=== PATIENT | female | born 1930 | race Caucasian/White ===

== ENCOUNTER 2018-08-26 05:22 | Inpatient (IN) | payer MEDICARE, OTHER ==
[2018-08-26 05:54] LABS: ADD MAN DIFF? NO
[2018-08-26 05:58] LABS: BASOPHILS % 0.4 % (0.0-2.0); EOSINOPHILS # 0.3 10^3/ul (0.0-0.5); EOSINOPHILS % 2.4 % (0.0-7.0); HEMATOCRIT 30.7 % (37.0-47.0); HEMOGLOBIN 9.9 g/dl (12.0-16.0); LYMPHOCYTES # 2.6 10^3/ul (0.8-2.9); LYMPHOCYTES % 23.6 % (15.0-51.0); MEAN CORPUSCULAR HEMOGLOBIN 28.9 pg (29.0-33.0); MEAN CORPUSCULAR HGB CONC 32.2 g/dl (32.0-37.0); MEAN CORPUSCULAR VOLUME 89.5 fl (82.0-101.0); MEAN PLATELET VOLUME 12.1 fl (7.4-10.4); MONOCYTE # 0.6 10^3/ul (0.3-0.9); MONOCYTES % 5.7 % (0.0-11.0); NEUTROPHIL # 7.4 10^3/ul (1.6-7.5); NEUTROPHILS % 67.4 % (39.0-77.0); PLATELET COUNT 267 10^3/UL (140-415); RED BLOOD COUNT 3.43 10^6/ul (4.20-5.40); RED CELL DISTRIBUTION WIDTH 13.2 % (11.5-14.5)
[2018-08-26 06:16] LABS: ALANINE AMINOTRANSFERASE 135 IU/L (13-69); ALBUMIN/GLOBULIN RATIO 1.42; ALKALINE PHOSPHATASE 134 IU/L (42-121); ANION GAP 16 (5-13); ASPARTATE AMINO TRANSFERASE 131 IU/L (15-46); BILIRUBIN,INDIRECT 0.6 mg/dl (0-1.1); BILIRUBIN,TOTAL 0.6 mg/dl (0.2-1.3); BLOOD UREA NITROGEN 54 mg/dl (7-20); CALCIUM 9.1 mg/dl (8.4-10.2); CARBON DIOXIDE 16 mmol/L (21-31); CHLORIDE 103 mmol/L (97-110); CREATININE 1.69 mg/dl (0.44-1.00); LIPASE 99 U/L (23-300); POTASSIUM 4.8 mmol/L (3.5-5.1); SODIUM 135 mmol/L (135-144); TOTAL PROTEIN 6.8 g/dl (6.1-8.1)
[2018-08-26 06:25] LABS: GLUCOSE 483 mg/dl (70-220)
[2018-08-26 06:27] LABS: B-TYPE NATRIURETIC PEPTIDE 1450 PG/ML (0-450); TROPONIN-I 0.058 ng/ml (0.000-0.120)
[2018-08-26] MEDS ORDERED: NS + KCL 40 MEQ 1,000 ML IV (06:36)
[2018-08-26] MEDS ORDERED: DEXTROSE 10%/0.45% NACL 1,000 ML IV (06:36)
[2018-08-26] MEDS ORDERED: SOD CHLORIDE 0.9% 1,000 ML IV (06:36)
[2018-08-26] MEDS ORDERED: D10/0.45% NACL + KCL 40 MEQ 1,000 ML IV (06:36)
[2018-08-26] MEDS ORDERED: D10/0.45% NACL + KCL 30 MEQ 1,000 ML IV (06:36)
[2018-08-26] MEDS: FUROSEMIDE 40 MG INJ IV (06:47)
[2018-08-26] MEDS: NITROGLYCERIN 2% 1 GM OINT PKT TD ×3 (06:47→22:23)
[2018-08-26] MEDS ORDERED: DEXTROSE 50% 50 ML SYRINGE IV ×4 (07:00→13:30)
[2018-08-26] MEDS ORDERED: NITROGLYCERIN (SL) 0.4 MG TAB SL (07:00)
[2018-08-26 07:11] LABS: INR 1.03; PROTIME 13.6 Sec (11.9-14.9); PT RATIO 1.1
[2018-08-26] MEDS: LACTATED RINGER'S 750 ML IV (07:13)
[2018-08-26 08:18] LABS: HEMOGLOBIN A1C 7.8 % (0-5.9)
[2018-08-26] MEDS: NS + KCL 30 MEQ 1,000 ML IV (08:40)
[2018-08-26] MEDS: INSULIN REGULAR, HUMAN 100 UNIT in SOD CHLORIDE 0.9% 100 ML IV (08:42)
[2018-08-26 08:57] LABS: MODE HFNC; MetHgb Venous 0.1 %; Sample Type Blood venous; Site VENOUS LINE; Venous COHb 0 %; Venous Fraction OxyHgb 74.9 %; Venous Total Hemglobin 11.4 g/dl
[2018-08-26 09:02] LABS: ANION GAP 11 (5-13); BLOOD UREA NITROGEN 55 mg/dl (7-20); CALCIUM 9.2 mg/dl (8.4-10.2); CARBON DIOXIDE 23 mmol/L (21-31); CHLORIDE 101 mmol/L (97-110); CREATININE 1.64 mg/dl (0.44-1.00); PHOSPHORUS 4.5 mg/dl (2.5-4.9); SODIUM 135 mmol/L (135-144)
[2018-08-26 09:15] LABS: GLUCOSE 436 mg/dl (70-220)
[2018-08-26 09:59] LABS: ADD UMIC YES; UR ASCORBIC ACID 40 mg/dL (NEGATIVE); UR BILIRUBIN (Dip) NEGATIVE (NEGATIVE); UR BLOOD (Dip) NEGATIVE (NEGATIVE); UR CLARITY CLEAR (CLEAR); UR COLOR YELLOW (YELLOW); UR GLUCOSE (Dip) 1+ mg/dL (NEGATIVE); UR KETONES (Dip) NEGATIVE (NEGATIVE); UR LEUKOCYTE ESTERASE (Dip) 2+ Leu/ul (NEGATIVE); UR NITRITE (Dip) NEGATIVE (NEGATIVE); UR RBC 0 /HPF (0-5); UR SPECIFIC GRAVITY (Dip) 1.011 (1.003-1.030); UR TOTAL PROTEIN (Dip) NEGATIVE (NEGATIVE); UR UROBILINOGEN (Dip) NEGATIVE (NEGATIVE); UR WBC 9 /HPF (0-5)
[2018-08-26] MEDS: INSULIN LISPRO 100 UNIT/ML VIAL SC (10:19)
[2018-08-26] MEDS: ACCU-CHEK XX (10:36)
[2018-08-26 10:56] LABS: MODE HFNC; MetHgb Venous 0.3 %; Sample Type Blood venous; Site VENOUS LINE; Venous COHb 0.3 %; Venous Fraction OxyHgb 59.3 %; Venous Oxygen Sat 59.7 mmHG (55.0-75.0); Venous Total Hemglobin 11.5 g/dl
[2018-08-26 11:13] LABS: CREATINE KINASE 66 IU/L (23-200)
[2018-08-26 11:15] LABS: ANION GAP 12 (5-13); BLOOD UREA NITROGEN 51 mg/dl (7-20); CALCIUM 9.3 mg/dl (8.4-10.2); CARBON DIOXIDE 21 mmol/L (21-31); CHLORIDE 103 mmol/L (97-110); CREATININE 1.62 mg/dl (0.44-1.00); GLUCOSE 360 mg/dl (70-220); PHOSPHORUS 3.8 mg/dl (2.5-4.9); POTASSIUM 4.5 mmol/L (3.5-5.1); SODIUM 136 mmol/L (135-144)
[2018-08-26 11:31] LABS: CK INDEX 3.4; CK-MB 2.23 ng/ml (0.0-2.4)
[2018-08-26 11:33] LABS: TROPONIN-I 0.631 ng/ml (0.000-0.120)
[2018-08-26 12:59] LABS: IRON 30 ug/dl (35-150)
[2018-08-26] MEDS ORDERED: NON-FORMULARY/PATIENT OWN MED (Omeprazole* 40 MG) PO (13:00)
[2018-08-26] MEDS ORDERED: ZOLPIDEM 5 MG TAB PO (13:00)
[2018-08-26] MEDS ORDERED: DOCUSATE SODIUM 100 MG CAP PO ×2 (13:00)
[2018-08-26] MEDS ORDERED: NACL 0.9% 3 ML SYG IV ×2 (13:00)
[2018-08-26] MEDS ORDERED: ONDANSETRON 4 MG INJ IV ×2 (13:00)
[2018-08-26] MEDS ORDERED: MAGNESIUM HYDROXIDE 30ML CUP PO (13:00)
[2018-08-26] MEDS ORDERED: ACETAMINOPHEN 325 MG TAB PO (13:00)
[2018-08-26 13:08] LABS: % IRON SATURATION 10 % SAT (22-52); TOTAL IRON BINDING CAPACITY 304 ug/dl (241-421)
[2018-08-26] MEDS ORDERED: GLUCOSE GEL 15 GRAM TUBE BUCCAL (13:30)
[2018-08-26] MEDS ORDERED: GLUCOSE GEL 15 GRAM TUBE PO ×2 (13:30)
[2018-08-26] MEDS ORDERED: GLUCAGON 1 MG INJ IM (13:30)
[2018-08-26] MEDS: METOPROLOL 25 MG TAB PO ×2 (13:30→23:00)
[2018-08-26 13:39] LABS: ALANINE AMINOTRANSFERASE 177 IU/L (13-69); ALBUMIN 3.6 g/dl (3.3-4.9); ALKALINE PHOSPHATASE 140 IU/L (42-121); ASPARTATE AMINO TRANSFERASE 153 IU/L (15-46); BILIRUBIN,INDIRECT 0.5 mg/dl (0-1.1); BILIRUBIN,TOTAL 0.5 mg/dl (0.2-1.3)
[2018-08-26 14:05] LABS: AADO2 Arterial 628.2 mmHg (7.0-24.0); Allen Test ACCEPTAB; Arterial Base Excess -1.4 mmol/L (-3.0-3); Arterial COHb 0.3 % (0.0-3.0); Arterial Fraction of Oxyhgb 84.6 % (93.0-99.0); Arterial HCO3 22.6 mmol/L (22.0-26.0); Arterial MetHb 0.2 % (0.0-1.5); Arterial pCO2 35.5 mmhg (35-45); MODE HFNC; Site Right Radial
[2018-08-26] MEDS: ENOXAPARIN 100 MG/ML SYG SC (16:03)
[2018-08-26] MEDS: BUMETANIDE 25 MG in DEXTROSE 5% 150 ML IV (16:17)
[2018-08-26] MEDS: INSULIN GLARGINE [LANTus] (100 UNITS/ML) SYG SC (17:25)
[2018-08-26] MEDS: INSULIN ASPART [NOVOLOG] 3 ML PEN SC ×2 (17:31→20:58)
[2018-08-26] MEDS ORDERED: INSULIN ASPART [NOVOLOG] 3 ML PEN SC (17:35)
[2018-08-26] MEDS ORDERED: FUROSEMIDE 40 MG INJ IV (18:00)
[2018-08-26 18:36] LABS: AADO2 Arterial 603.6 mmHg (7.0-24.0); Allen Test ACCEPTAB; Arterial Base Excess -0.6 mmol/L (-3.0-3); Arterial Blood Gas Oxygen Sat 94.7 mmHG (95.0-100.0); Arterial COHb 0 % (0.0-3.0); Arterial Fraction of Oxyhgb 94.3 % (93.0-99.0); Arterial HCO3 23.2 mmol/L (22.0-26.0); Arterial MetHb 0.4 % (0.0-1.5); Arterial pCO2 35.8 mmhg (35-45); Blood Gas IEPAP 15/5; Blood Gas PS 10; MODE MASK - BIPAP; Site Right Radial
[2018-08-26 18:51] LABS: POTASSIUM 4.3 mmol/L (3.5-5.1)
[2018-08-26] MEDS: FELODIPINE (ER) 5 MG TAB PO (21:00)
[2018-08-26] MEDS: FAMOTIDINE 20 MG TAB PO (21:00)
[2018-08-26] MEDS: ATORVASTATIN 80 MG TAB PO (21:00)
[2018-08-26] MEDS ORDERED: FAMOTIDINE 20 MG TAB PO (21:00)
[2018-08-27] MEDS: INSULIN ASPART [NOVOLOG] 3 ML PEN SC ×6 (01:00→21:16)
[2018-08-27] MEDS ORDERED: ACCU-CHEK XX (02:00)
[2018-08-27 05:30] LABS: ADD MAN DIFF? NO
[2018-08-27 05:34] LABS: WHITE BLOOD COUNT 7.1 10^3/ul (4.8-10.8)
[2018-08-27 05:34] LABS: BASOPHILS % 0.3 % (0.0-2.0); HEMATOCRIT 31.5 % (37.0-47.0); HEMOGLOBIN 10.2 g/dl (12.0-16.0); LYMPHOCYTES # 0.8 10^3/ul (0.8-2.9); LYMPHOCYTES % 11.8 % (15.0-51.0); MEAN CORPUSCULAR HEMOGLOBIN 27.9 pg (29.0-33.0); MEAN CORPUSCULAR HGB CONC 32.4 g/dl (32.0-37.0); MEAN CORPUSCULAR VOLUME 86.1 fl (82.0-101.0); MEAN PLATELET VOLUME 11.6 fl (7.4-10.4); MONOCYTE # 0.5 10^3/ul (0.3-0.9); MONOCYTES % 6.6 % (0.0-11.0); NEUTROPHIL # 5.7 10^3/ul (1.6-7.5); NEUTROPHILS % 80.9 % (39.0-77.0); PLATELET COUNT 243 10^3/UL (140-415); RED BLOOD COUNT 3.66 10^6/ul (4.20-5.40); RED CELL DISTRIBUTION WIDTH 13.4 % (11.5-14.5)
[2018-08-27] MEDS: PANTOPRAZOLE (EC) 40 MG TAB PO (05:47)
[2018-08-27] MEDS: NITROGLYCERIN 2% 1 GM OINT PKT TD ×3 (05:48→22:39)
[2018-08-27 06:28] LABS: ANION GAP 12 (5-13); BLOOD UREA NITROGEN 43 mg/dl (7-20); CALCIUM 9.3 mg/dl (8.4-10.2); CARBON DIOXIDE 29 mmol/L (21-31); CHLORIDE 103 mmol/L (97-110); CREATININE 1.36 mg/dl (0.44-1.00); GLUCOSE 167 mg/dl (70-220); MAGNESIUM 1.8 mg/dl (1.7-2.5); PHOSPHORUS 4.1 mg/dl (2.5-4.9); POTASSIUM 3.9 mmol/L (3.5-5.1); SODIUM 144 mmol/L (135-144)
[2018-08-27] MEDS: FELODIPINE (ER) 5 MG TAB PO ×2 (08:46→21:02)
[2018-08-27] MEDS: MAGNESIUM SULFATE 2 GM/50 ML 50 ML IVPB (08:46)
[2018-08-27] MEDS: ASPIRIN (EC) 81 MG TAB PO (08:46)
[2018-08-27] MEDS: LEVOFLOXACIN 500MG/D5W (PMX) 100 ML IVPB (09:44)
[2018-08-27] MEDS: METOPROLOL 5 MG INJ IV ×2 (11:42→17:17)
[2018-08-27] MEDS: ENOXAPARIN 100 MG/ML SYG SC (13:31)
[2018-08-27] MEDS: ATORVASTATIN 80 MG TAB PO (21:02)
[2018-08-27] MEDS: AZTREONAM 2 GM in SOD CHLORIDE 0.9% 100 ML IVPB (21:03)
[2018-08-27 22:13] LABS: POTASSIUM 3.2 mmol/L (3.5-5.1)
[2018-08-27] MEDS: POTASSIUM CHLORIDE 100 ML IVPB (22:53)
[2018-08-28] MEDS: METOPROLOL 5 MG INJ IV ×3 (00:19→12:00)
[2018-08-28] MEDS: POTASSIUM CHLORIDE 100 ML IVPB (01:09)
[2018-08-28] MEDS: INSULIN ASPART [NOVOLOG] 3 ML PEN SC ×6 (01:09→20:22)
[2018-08-28 05:17] LABS: ADD MAN DIFF? NO
[2018-08-28 05:23] LABS: WHITE BLOOD COUNT 6.2 10^3/ul (4.8-10.8)
[2018-08-28 05:23] LABS: BASOPHILS % 0.3 % (0.0-2.0); HEMATOCRIT 29.2 % (37.0-47.0); HEMOGLOBIN 9.3 g/dl (12.0-16.0); LYMPHOCYTES % 15.9 % (15.0-51.0); MEAN CORPUSCULAR HEMOGLOBIN 28.4 pg (29.0-33.0); MEAN CORPUSCULAR HGB CONC 31.8 g/dl (32.0-37.0); MEAN PLATELET VOLUME 11.9 fl (7.4-10.4); MONOCYTE # 0.6 10^3/ul (0.3-0.9); MONOCYTES % 9.4 % (0.0-11.0); NEUTROPHIL # 4.6 10^3/ul (1.6-7.5); NEUTROPHILS % 74.1 % (39.0-77.0); PLATELET COUNT 215 10^3/UL (140-415); RED BLOOD COUNT 3.28 10^6/ul (4.20-5.40); RED CELL DISTRIBUTION WIDTH 13.5 % (11.5-14.5)
[2018-08-28 05:38] LABS: ALANINE AMINOTRANSFERASE 70 IU/L (13-69); ALBUMIN 3.6 g/dl (3.3-4.9); ALBUMIN/GLOBULIN RATIO 1.28; ALKALINE PHOSPHATASE 90 IU/L (42-121); ANION GAP 9 (5-13); ASPARTATE AMINO TRANSFERASE 28 IU/L (15-46); BILIRUBIN,INDIRECT 0.7 mg/dl (0-1.1); BILIRUBIN,TOTAL 0.7 mg/dl (0.2-1.3); BLOOD UREA NITROGEN 52 mg/dl (7-20); CALCIUM 9.2 mg/dl (8.4-10.2); CARBON DIOXIDE 28 mmol/L (21-31); CHLORIDE 103 mmol/L (97-110); GLUCOSE 155 mg/dl (70-220); MAGNESIUM 2.3 mg/dl (1.7-2.5); PHOSPHORUS 3.9 mg/dl (2.5-4.9); POTASSIUM 3.7 mmol/L (3.5-5.1); SODIUM 140 mmol/L (135-144); TOTAL PROTEIN 6.4 g/dl (6.1-8.1)
[2018-08-28] MEDS: NITROGLYCERIN 2% 1 GM OINT PKT TD (05:59)
[2018-08-28] MEDS: FELODIPINE (ER) 5 MG TAB PO ×2 (08:20→20:20)
[2018-08-28] MEDS: FAMOTIDINE 20 MG INJ IV (08:20)
[2018-08-28] MEDS: ASPIRIN (EC) 81 MG TAB PO (08:20)
[2018-08-28] MEDS: AZTREONAM 2 GM in SOD CHLORIDE 0.9% 100 ML IVPB ×2 (08:49→20:19)
[2018-08-28 09:40] LABS: PROCALCITONIN 0.75 ng/mL (0.00-0.10)
[2018-08-28] MEDS: ENOXAPARIN 100 MG/ML SYG SC (12:24)
[2018-08-28] MEDS: SOD FERRIC GLUC COMPLX 125 MG in SOD CHLORIDE 0.9% 100 ML IVPB (12:32)
[2018-08-28] MEDS: ACETAMINOPHEN 325 MG TAB PO ×2 (12:33→20:20)
[2018-08-28] MEDS: FUROSEMIDE 40 MG INJ IV (13:12)
[2018-08-28] MEDS: METOPROLOL 25 MG TAB PO ×2 (14:00→20:20)
[2018-08-28] MEDS: ATORVASTATIN 80 MG TAB PO (20:21)
[2018-08-29] MEDS: INSULIN ASPART [NOVOLOG] 3 ML PEN SC ×6 (00:40→20:15)
[2018-08-29 05:04] LABS: ADD MAN DIFF? NO
[2018-08-29 05:09] LABS: BASOPHILS % 0.6 % (0.0-2.0); EOSINOPHILS % 0.4 % (0.0-7.0); HEMATOCRIT 28.6 % (37.0-47.0); HEMOGLOBIN 9.1 g/dl (12.0-16.0); LYMPHOCYTES # 1.2 10^3/ul (0.8-2.9); LYMPHOCYTES % 17.6 % (15.0-51.0); MEAN CORPUSCULAR HEMOGLOBIN 28.2 pg (29.0-33.0); MEAN CORPUSCULAR HGB CONC 31.8 g/dl (32.0-37.0); MEAN CORPUSCULAR VOLUME 88.5 fl (82.0-101.0); MEAN PLATELET VOLUME 11.4 fl (7.4-10.4); MONOCYTE # 0.5 10^3/ul (0.3-0.9); MONOCYTES % 6.9 % (0.0-11.0); NEUTROPHIL # 5.2 10^3/ul (1.6-7.5); NEUTROPHILS % 74.2 % (39.0-77.0); PLATELET COUNT 248 10^3/UL (140-415); RED BLOOD COUNT 3.23 10^6/ul (4.20-5.40); RED CELL DISTRIBUTION WIDTH 13.3 % (11.5-14.5)
[2018-08-29 05:33] LABS: PHOSPHORUS 4.7 mg/dl (2.5-4.9)
[2018-08-29 05:33] LABS: ANION GAP 11 (5-13); BLOOD UREA NITROGEN 62 mg/dl (7-20); CALCIUM 9.5 mg/dl (8.4-10.2); CARBON DIOXIDE 27 mmol/L (21-31); CHLORIDE 104 mmol/L (97-110); CREATININE 1.41 mg/dl (0.44-1.00); GLUCOSE 128 mg/dl (70-220); MAGNESIUM 2.5 mg/dl (1.7-2.5); POTASSIUM 3.5 mmol/L (3.5-5.1); SODIUM 142 mmol/L (135-144)
[2018-08-29 07:27] LABS: PROCALCITONIN 0.54 ng/mL (0.00-0.10)
[2018-08-29 08:15] LABS: AADO2 Arterial 596.6 mmHg (7.0-24.0); Arterial Base Excess 2.1 mmol/L (-3.0-3); Arterial Blood Gas Oxygen Sat 95.4 mmHG (95.0-100.0); Arterial COHb 0.1 % (0.0-3.0); Arterial Fraction of Oxyhgb 95.3 % (93.0-99.0); Arterial HCO3 25.8 mmol/L (22.0-26.0); Arterial MetHb 0 % (0.0-1.5); Arterial pCO2 36.7 mmhg (35-45); Blood Gas IEPAP 15/5; MODE MASK - BIPAP; Site Right Brachial
[2018-08-29] MEDS: AZTREONAM 2 GM in SOD CHLORIDE 0.9% 100 ML IVPB ×2 (08:39→20:11)
[2018-08-29] MEDS: LEVOFLOXACIN 500MG/D5W (PMX) 100 ML IVPB (08:40)
[2018-08-29] MEDS: FELODIPINE (ER) 5 MG TAB PO ×2 (08:40→19:53)
[2018-08-29] MEDS: FAMOTIDINE 20 MG INJ IV (08:40)
[2018-08-29] MEDS: METOPROLOL 25 MG TAB PO ×2 (08:40→19:53)
[2018-08-29] MEDS: ASPIRIN (EC) 81 MG TAB PO (08:40)
[2018-08-29] MEDS: FUROSEMIDE 40 MG INJ IV (08:42)
[2018-08-29] MEDS: POTASSIUM CHLORIDE (SR) 10 MEQ TAB PO (08:42)
[2018-08-29] MEDS ORDERED: VANCOMYCIN IV PER PHARMACY XX (09:30)
[2018-08-29] MEDS: VANCOMYCIN HCL 1.5 GM in SOD CHLORIDE 0.9% 250 ML IVPB (13:11)
[2018-08-29] MEDS: ENOXAPARIN 80 MG/0.8 ML SYG SC (13:14)
[2018-08-29] MEDS: SOD FERRIC GLUC COMPLX 125 MG in SOD CHLORIDE 0.9% 100 ML IVPB (13:16)
[2018-08-29] MEDS: LIDOCAINE 5% PATCH TD (13:16)
[2018-08-29] MEDS: LORAZEPAM 0.5 MG TAB PO (13:26)
[2018-08-29] MEDS: ATORVASTATIN 80 MG TAB PO (19:53)
[2018-08-29 19:54] LABS: ANION GAP 13 (5-13); BLOOD UREA NITROGEN 65 mg/dl (7-20); CALCIUM 8.9 mg/dl (8.4-10.2); CARBON DIOXIDE 24 mmol/L (21-31); CHLORIDE 105 mmol/L (97-110); CREATININE 1.27 mg/dl (0.44-1.00); GLUCOSE 180 mg/dl (70-220); POTASSIUM 3.8 mmol/L (3.5-5.1); SODIUM 142 mmol/L (135-144)
[2018-08-29] MEDS: LORAZEPAM 2 MG INJ IV (19:54)
[2018-08-30] MEDS: INSULIN ASPART [NOVOLOG] 3 ML PEN SC ×6 (00:05→20:36)
[2018-08-30 05:01] LABS: ADD MAN DIFF? NO
[2018-08-30 05:11] LABS: BASOPHILS % 0.3 % (0.0-2.0); HEMATOCRIT 28.4 % (37.0-47.0); LYMPHOCYTES # 0.7 10^3/ul (0.8-2.9); LYMPHOCYTES % 10.6 % (15.0-51.0); MEAN CORPUSCULAR HEMOGLOBIN 27.6 pg (29.0-33.0); MEAN CORPUSCULAR HGB CONC 31.7 g/dl (32.0-37.0); MEAN CORPUSCULAR VOLUME 87.1 fl (82.0-101.0); MEAN PLATELET VOLUME 11.5 fl (7.4-10.4); MONOCYTE # 0.5 10^3/ul (0.3-0.9); MONOCYTES % 7.6 % (0.0-11.0); NEUTROPHIL # 5.5 10^3/ul (1.6-7.5); NEUTROPHILS % 81.2 % (39.0-77.0); PLATELET COUNT 267 10^3/UL (140-415); RED BLOOD COUNT 3.26 10^6/ul (4.20-5.40); RED CELL DISTRIBUTION WIDTH 13.2 % (11.5-14.5)
[2018-08-30 05:11] LABS: WHITE BLOOD COUNT 6.8 10^3/ul (4.8-10.8)
[2018-08-30 05:31] LABS: ANION GAP 9 (5-13); BLOOD UREA NITROGEN 67 mg/dl (7-20); CALCIUM 9.3 mg/dl (8.4-10.2); CARBON DIOXIDE 27 mmol/L (21-31); CHLORIDE 107 mmol/L (97-110); GLUCOSE 181 mg/dl (70-220); POTASSIUM 3.8 mmol/L (3.5-5.1); SODIUM 143 mmol/L (135-144)
[2018-08-30 05:33] LABS: MAGNESIUM 2.5 mg/dl (1.7-2.5)
[2018-08-30 05:33] LABS: PHOSPHORUS 3.7 mg/dl (2.5-4.9)
[2018-08-30 05:38] LABS: B-TYPE NATRIURETIC PEPTIDE 3820 PG/ML (0-450)
[2018-08-30] MEDS: ACETAMINOPHEN 325 MG TAB PO (06:44)
[2018-08-30] MEDS: FAMOTIDINE 20 MG INJ IV (08:42)
[2018-08-30] MEDS: ASPIRIN (EC) 81 MG TAB PO (08:42)
[2018-08-30] MEDS: METOPROLOL 25 MG TAB PO (08:43)
[2018-08-30] MEDS: FELODIPINE (ER) 5 MG TAB PO (08:43)
[2018-08-30] MEDS: AZTREONAM 2 GM in SOD CHLORIDE 0.9% 100 ML IVPB ×2 (08:43→20:33)
[2018-08-30] MEDS: LIDOCAINE 5% PATCH TD (08:44)
[2018-08-30] MEDS: VANCOMYCIN 750 MG (PMX) 250 ML IVPB (11:32)
[2018-08-30] MEDS: SOD FERRIC GLUC COMPLX 125 MG in SOD CHLORIDE 0.9% 100 ML IVPB (12:41)
[2018-08-30] MEDS: ENOXAPARIN 80 MG/0.8 ML SYG SC (12:45)
[2018-08-30] MEDS: POTASSIUM CHLORIDE (SR) 20 MEQ TAB PO (12:52)
[2018-08-30] MEDS: FUROSEMIDE 40 MG INJ IV (12:53)
[2018-08-30] MEDS: LORAZEPAM 2 MG INJ IV ×2 (13:40→21:33)
[2018-08-30] MEDS: ATORVASTATIN 80 MG TAB PO (20:30)
[2018-08-30] MEDS: METOPROLOL 50 MG TAB PO (20:32)
[2018-08-31] MEDS: LORAZEPAM 2 MG INJ IV (02:27)
[2018-08-31] MEDS: INSULIN ASPART [NOVOLOG] 3 ML PEN SC ×6 (02:59→20:47)
[2018-08-31 05:13] LABS: ADD MAN DIFF? NO
[2018-08-31 05:22] LABS: BASOPHILS % 0.3 % (0.0-2.0); EOSINOPHILS % 0.6 % (0.0-7.0); HEMATOCRIT 28.6 % (37.0-47.0); HEMOGLOBIN 9.1 g/dl (12.0-16.0); LYMPHOCYTES # 0.9 10^3/ul (0.8-2.9); LYMPHOCYTES % 13.8 % (15.0-51.0); MEAN CORPUSCULAR HEMOGLOBIN 27.8 pg (29.0-33.0); MEAN CORPUSCULAR HGB CONC 31.8 g/dl (32.0-37.0); MEAN CORPUSCULAR VOLUME 87.5 fl (82.0-101.0); MEAN PLATELET VOLUME 11.2 fl (7.4-10.4); MONOCYTE # 0.4 10^3/ul (0.3-0.9); MONOCYTES % 5.5 % (0.0-11.0); NEUTROPHIL # 5.2 10^3/ul (1.6-7.5); NEUTROPHILS % 78.7 % (39.0-77.0); PLATELET COUNT 277 10^3/UL (140-415); RED BLOOD COUNT 3.27 10^6/ul (4.20-5.40); RED CELL DISTRIBUTION WIDTH 13.3 % (11.5-14.5)
[2018-08-31 05:22] LABS: WHITE BLOOD COUNT 6.5 10^3/ul (4.8-10.8)
[2018-08-31 05:29] LABS: Allen Test ACCEPTAB; Arterial Base Excess 1.7 mmol/L (-3.0-3); Arterial Blood Gas Oxygen Sat 92.8 mmHG (95.0-100.0); Arterial COHb 0.4 % (0.0-3.0); Arterial Fraction of Oxyhgb 92.3 % (93.0-99.0); Arterial HCO3 25.8 mmol/L (22.0-26.0); Arterial MetHb 0.1 % (0.0-1.5); Arterial pCO2 38.3 mmhg (35-45); Blood Gas IEPAP 15/5; MODE MASK - BIPAP; Site Right Radial
[2018-08-31 05:39] LABS: LACTIC ACID 1.1 mmol/L (0.5-2.0)
[2018-08-31 05:50] LABS: ANION GAP 10 (5-13); BLOOD UREA NITROGEN 71 mg/dl (7-20); CALCIUM 8.8 mg/dl (8.4-10.2); CARBON DIOXIDE 27 mmol/L (21-31); CHLORIDE 109 mmol/L (97-110); CREATININE 1.18 mg/dl (0.44-1.00); GLUCOSE 164 mg/dl (70-220); POTASSIUM 3.7 mmol/L (3.5-5.1); SODIUM 146 mmol/L (135-144)
[2018-08-31 08:40] LABS: PROCALCITONIN 0.36 ng/mL (0.00-0.10)
[2018-08-31] MEDS: ASPIRIN (EC) 81 MG TAB PO (10:22)
[2018-08-31] MEDS: METOPROLOL 50 MG TAB PO ×2 (10:23→20:21)
[2018-08-31] MEDS: LEVOFLOXACIN 500MG/D5W (PMX) 100 ML IVPB (10:24)
[2018-08-31] MEDS: LIDOCAINE 5% PATCH TD (10:25)
[2018-08-31] MEDS: FELODIPINE (ER) 5 MG TAB PO (10:35)
[2018-08-31] MEDS: AZTREONAM 2 GM in SOD CHLORIDE 0.9% 100 ML IVPB ×3 (10:38→21:30)
[2018-08-31] MEDS: FAMOTIDINE 20 MG INJ IV (11:01)
[2018-08-31] MEDS: VANCOMYCIN 750 MG (PMX) 250 ML IVPB (14:21)
[2018-08-31] MEDS: FUROSEMIDE 40 MG INJ IV ×2 (14:24→20:21)
[2018-08-31] MEDS: SOD FERRIC GLUC COMPLX 125 MG in SOD CHLORIDE 0.9% 100 ML IVPB (14:27)
[2018-08-31] MEDS: ENOXAPARIN 80 MG/0.8 ML SYG SC (14:27)
[2018-08-31] MEDS: ATORVASTATIN 80 MG TAB PO (20:21)
[2018-09-01] MEDS: INSULIN ASPART [NOVOLOG] 3 ML PEN SC ×6 (01:18→20:24)
[2018-09-01 04:59] LABS: AADO2 Arterial 617.9 mmHg (7.0-24.0); Allen Test ACCEPTAB; Arterial Base Excess 2.5 mmol/L (-3.0-3); Arterial Blood Gas Oxygen Sat 92.5 mmHG (95.0-100.0); Arterial COHb 0.1 % (0.0-3.0); Arterial Fraction of Oxyhgb 92.1 % (93.0-99.0); Arterial HCO3 25.8 mmol/L (22.0-26.0); Arterial MetHb 0.3 % (0.0-1.5); Arterial pCO2 34.7 mmhg (35-45); MODE HFNC; Site Right Radial
[2018-09-01] MEDS: FUROSEMIDE 40 MG INJ IV (05:40)
[2018-09-01 05:53] LABS: ADD MAN DIFF? NO
[2018-09-01 06:18] LABS: WHITE BLOOD COUNT 7.7 10^3/ul (4.8-10.8)
[2018-09-01 06:18] LABS: BASOPHILS % 0.5 % (0.0-2.0); EOSINOPHILS # 0.1 10^3/ul (0.0-0.5); EOSINOPHILS % 1.8 % (0.0-7.0); HEMATOCRIT 34.7 % (37.0-47.0); HEMOGLOBIN 10.9 g/dl (12.0-16.0); LYMPHOCYTES # 1.1 10^3/ul (0.8-2.9); LYMPHOCYTES % 14.8 % (15.0-51.0); MEAN CORPUSCULAR HEMOGLOBIN 27.9 pg (29.0-33.0); MEAN CORPUSCULAR HGB CONC 31.4 g/dl (32.0-37.0); MEAN PLATELET VOLUME 11.5 fl (7.4-10.4); MONOCYTE # 0.4 10^3/ul (0.3-0.9); MONOCYTES % 5.6 % (0.0-11.0); NEUTROPHIL # 5.9 10^3/ul (1.6-7.5); NEUTROPHILS % 75.7 % (39.0-77.0); PLATELET COUNT 343 10^3/UL (140-415); RED CELL DISTRIBUTION WIDTH 13.3 % (11.5-14.5)
[2018-09-01 06:28] LABS: ANION GAP 9 (5-13); BLOOD UREA NITROGEN 59 mg/dl (7-20); CALCIUM 8.9 mg/dl (8.4-10.2); CARBON DIOXIDE 28 mmol/L (21-31); CHLORIDE 109 mmol/L (97-110); CREATININE 1.03 mg/dl (0.44-1.00); GLUCOSE 180 mg/dl (70-220); POTASSIUM 3.6 mmol/L (3.5-5.1); SODIUM 146 mmol/L (135-144)
[2018-09-01] MEDS: DIGOXIN 500 MCG INJ IV (07:41)
[2018-09-01] MEDS: ASPIRIN (EC) 81 MG TAB PO (07:42)
[2018-09-01] MEDS: METOPROLOL 50 MG TAB PO ×2 (07:42→20:22)
[2018-09-01] MEDS: AZTREONAM 2 GM in SOD CHLORIDE 0.9% 100 ML IVPB ×2 (09:08→20:52)
[2018-09-01] MEDS: LIDOCAINE 5% PATCH TD (09:11)
[2018-09-01] MEDS: FAMOTIDINE 20 MG INJ IV (09:19)
[2018-09-01 10:30] LABS: VANCOMYCIN,TROUGH 8.4 ug/ml (10.0-20.0)
[2018-09-01] MEDS: POTASSIUM CHLORIDE (SR) 10 MEQ TAB PO (10:49)
[2018-09-01] MEDS: FELODIPINE (ER) 2.5 MG TAB PO (11:48)
[2018-09-01] MEDS: VANCOMYCIN 750 MG (PMX) 250 ML IVPB (11:49)
[2018-09-01] MEDS: ENOXAPARIN 80 MG/0.8 ML SYG SC (13:00)
[2018-09-01] MEDS: SOD FERRIC GLUC COMPLX 125 MG in SOD CHLORIDE 0.9% 100 ML IVPB (13:56)
[2018-09-01] MEDS: ATORVASTATIN 80 MG TAB PO (20:22)
[2018-09-01] MEDS: LORAZEPAM 2 MG INJ IV (23:01)
[2018-09-01] MEDS: ACETAMINOPHEN 325 MG TAB PO (23:01)
[2018-09-02] MEDS: INSULIN ASPART [NOVOLOG] 3 ML PEN SC ×6 (01:00→21:01)
[2018-09-02] MEDS: VANCOMYCIN HCL 1.25 GM in SOD CHLORIDE 0.9% 250 ML IVPB (05:15)
[2018-09-02 06:08] LABS: ADD MAN DIFF? NO
[2018-09-02 06:16] LABS: BASOPHILS % 0.4 % (0.0-2.0); EOSINOPHILS # 0.1 10^3/ul (0.0-0.5); EOSINOPHILS % 1.7 % (0.0-7.0); HEMATOCRIT 33.7 % (37.0-47.0); HEMOGLOBIN 10.4 g/dl (12.0-16.0); LYMPHOCYTES # 1.1 10^3/ul (0.8-2.9); LYMPHOCYTES % 13.6 % (15.0-51.0); MEAN CORPUSCULAR HEMOGLOBIN 27.9 pg (29.0-33.0); MEAN CORPUSCULAR HGB CONC 30.9 g/dl (32.0-37.0); MEAN CORPUSCULAR VOLUME 90.3 fl (82.0-101.0); MONOCYTE # 0.5 10^3/ul (0.3-0.9); NEUTROPHIL # 6.2 10^3/ul (1.6-7.5); NEUTROPHILS % 76.8 % (39.0-77.0); PLATELET COUNT 326 10^3/UL (140-415); RED BLOOD COUNT 3.73 10^6/ul (4.20-5.40); RED CELL DISTRIBUTION WIDTH 13.3 % (11.5-14.5)
[2018-09-02 06:47] LABS: ALANINE AMINOTRANSFERASE 33 IU/L (13-69); ALBUMIN 3.2 g/dl (3.3-4.9); ALBUMIN/GLOBULIN RATIO 1.06; ALKALINE PHOSPHATASE 79 IU/L (42-121); ANION GAP 6 (5-13); ASPARTATE AMINO TRANSFERASE 31 IU/L (15-46); BILIRUBIN,INDIRECT 0.4 mg/dl (0-1.1); BILIRUBIN,TOTAL 0.4 mg/dl (0.2-1.3); BLOOD UREA NITROGEN 49 mg/dl (7-20); CALCIUM 9.2 mg/dl (8.4-10.2); CARBON DIOXIDE 28 mmol/L (21-31); CHLORIDE 110 mmol/L (97-110); CREATININE 0.92 mg/dl (0.44-1.00); GLUCOSE 183 mg/dl (70-220); SODIUM 144 mmol/L (135-144); TOTAL PROTEIN 6.2 g/dl (6.1-8.1)
[2018-09-02 06:56] LABS: B-TYPE NATRIURETIC PEPTIDE 3380 PG/ML (0-450)
[2018-09-02 07:17] LABS: MAGNESIUM 2.4 mg/dl (1.7-2.5)
[2018-09-02 07:17] LABS: PHOSPHORUS 3.6 mg/dl (2.5-4.9)
[2018-09-02 07:24] LABS: PROCALCITONIN 0.18 ng/mL (0.00-0.10)
[2018-09-02] MEDS: FUROSEMIDE 40 MG INJ IV (08:17)
[2018-09-02] MEDS: ASPIRIN (EC) 81 MG TAB PO (08:17)
[2018-09-02] MEDS: FAMOTIDINE 20 MG TAB PO (08:17)
[2018-09-02] MEDS: FELODIPINE (ER) 2.5 MG TAB PO (08:17)
[2018-09-02] MEDS: METOPROLOL 50 MG TAB PO ×2 (08:18→20:52)
[2018-09-02] MEDS: LIDOCAINE 5% PATCH TD (08:58)
[2018-09-02] MEDS: AZTREONAM 2 GM in SOD CHLORIDE 0.9% 100 ML IVPB ×2 (10:13→20:52)
[2018-09-02] MEDS: LEVOFLOXACIN 500MG/D5W (PMX) 100 ML IVPB (10:13)
[2018-09-02] MEDS: ENOXAPARIN 80 MG/0.8 ML SYG SC (12:26)
[2018-09-02] MEDS: ATORVASTATIN 80 MG TAB PO (20:52)
[2018-09-03] MEDS: INSULIN ASPART [NOVOLOG] 3 ML PEN SC ×6 (01:03→21:13)
[2018-09-03 05:55] LABS: ALANINE AMINOTRANSFERASE 51 IU/L (13-69); ALBUMIN 3.1 g/dl (3.3-4.9); ALKALINE PHOSPHATASE 82 IU/L (42-121); ANION GAP 6 (5-13); ASPARTATE AMINO TRANSFERASE 43 IU/L (15-46); BILIRUBIN,INDIRECT 0.4 mg/dl (0-1.1); BILIRUBIN,TOTAL 0.4 mg/dl (0.2-1.3); BLOOD UREA NITROGEN 43 mg/dl (7-20); CALCIUM 9.4 mg/dl (8.4-10.2); CARBON DIOXIDE 31 mmol/L (21-31); CHLORIDE 108 mmol/L (97-110); CREATININE 0.98 mg/dl (0.44-1.00); GLUCOSE 176 mg/dl (70-220); POTASSIUM 4.5 mmol/L (3.5-5.1); SODIUM 145 mmol/L (135-144); TOTAL PROTEIN 5.9 g/dl (6.1-8.1)
[2018-09-03] MEDS: VANCOMYCIN HCL 1.25 GM in SOD CHLORIDE 0.9% 250 ML IVPB (06:01)
[2018-09-03] MEDS: FAMOTIDINE 20 MG TAB PO (08:20)
[2018-09-03] MEDS: FELODIPINE (ER) 2.5 MG TAB PO (08:20)
[2018-09-03] MEDS: ASPIRIN (EC) 81 MG TAB PO (08:20)
[2018-09-03] MEDS: METOPROLOL 50 MG TAB PO ×2 (08:21→20:28)
[2018-09-03] MEDS: LIDOCAINE 5% PATCH TD (08:21)
[2018-09-03] MEDS: FUROSEMIDE 40 MG INJ IV (09:24)
[2018-09-03] MEDS: AZTREONAM 2 GM in SOD CHLORIDE 0.9% 100 ML IVPB ×2 (09:24→20:28)
[2018-09-03] MEDS: GUAIFENESIN/CODEINE 5ML CUP PO ×2 (11:04→22:01)
[2018-09-03] MEDS: ENOXAPARIN 80 MG/0.8 ML SYG SC (13:30)
[2018-09-03] MEDS: ATORVASTATIN 80 MG TAB PO (20:28)
[2018-09-03] MEDS: ARTIFICIAL TEARS 15 ML OPH BOTH EYES (21:11)
[2018-09-04] MEDS: ACCUCHECK AT 2AM (Patients on SS coverage) XX (02:20)
[2018-09-04] MEDS: GUAIFENESIN/CODEINE 5ML CUP PO ×4 (02:22→19:30)
[2018-09-04] MEDS: FUROSEMIDE 40 MG INJ IV (05:43)
[2018-09-04] MEDS: VANCOMYCIN HCL 1.25 GM in SOD CHLORIDE 0.9% 250 ML IVPB (05:43)
[2018-09-04] MEDS: ARTIFICIAL TEARS 15 ML OPH BOTH EYES (05:51)
[2018-09-04 06:09] LABS: ADD MAN DIFF? NO
[2018-09-04 06:11] LABS: WHITE BLOOD COUNT 8.2 10^3/ul (4.8-10.8)
[2018-09-04 06:11] LABS: BASOPHIL # 0.1 10^3/ul (0.0-0.1); BASOPHILS % 0.6 % (0.0-2.0); EOSINOPHILS # 0.3 10^3/ul (0.0-0.5); EOSINOPHILS % 3.2 % (0.0-7.0); HEMATOCRIT 35.3 % (37.0-47.0); LYMPHOCYTES # 1.2 10^3/ul (0.8-2.9); LYMPHOCYTES % 14.4 % (15.0-51.0); MEAN CORPUSCULAR HEMOGLOBIN 27.8 pg (29.0-33.0); MEAN CORPUSCULAR HGB CONC 31.2 g/dl (32.0-37.0); MEAN CORPUSCULAR VOLUME 89.1 fl (82.0-101.0); MEAN PLATELET VOLUME 10.9 fl (7.4-10.4); MONOCYTE # 0.5 10^3/ul (0.3-0.9); MONOCYTES % 6.2 % (0.0-11.0); NEUTROPHIL # 5.9 10^3/ul (1.6-7.5); NEUTROPHILS % 72.4 % (39.0-77.0); PLATELET COUNT 330 10^3/UL (140-415); RED BLOOD COUNT 3.96 10^6/ul (4.20-5.40); RED CELL DISTRIBUTION WIDTH 13.2 % (11.5-14.5)
[2018-09-04 07:11] LABS: ALANINE AMINOTRANSFERASE 83 IU/L (13-69); ALBUMIN 3.2 g/dl (3.3-4.9); ALKALINE PHOSPHATASE 106 IU/L (42-121); ANION GAP 5 (5-13); ASPARTATE AMINO TRANSFERASE 80 IU/L (15-46); BILIRUBIN,INDIRECT 0.3 mg/dl (0-1.1); BILIRUBIN,TOTAL 0.3 mg/dl (0.2-1.3); BLOOD UREA NITROGEN 33 mg/dl (7-20); CARBON DIOXIDE 32 mmol/L (21-31); CHLORIDE 105 mmol/L (97-110); CREATININE 0.81 mg/dl (0.44-1.00); GLUCOSE 209 mg/dl (70-220); MAGNESIUM 2.1 mg/dl (1.7-2.5); PHOSPHORUS 3.4 mg/dl (2.5-4.9); POTASSIUM 4.3 mmol/L (3.5-5.1); SODIUM 142 mmol/L (135-144); TOTAL PROTEIN 6.4 g/dl (6.1-8.1)
[2018-09-04] MEDS: FELODIPINE (ER) 2.5 MG TAB PO (08:43)
[2018-09-04] MEDS: FAMOTIDINE 20 MG TAB PO (08:43)
[2018-09-04] MEDS: ASPIRIN (EC) 81 MG TAB PO (08:43)
[2018-09-04] MEDS: METOPROLOL 50 MG TAB PO ×2 (08:43→20:35)
[2018-09-04] MEDS: LIDOCAINE 5% PATCH TD (08:44)
[2018-09-04] MEDS: INSULIN ASPART [NOVOLOG] 3 ML PEN SC ×4 (08:57→20:36)
[2018-09-04] MEDS: AZTREONAM 2 GM in SOD CHLORIDE 0.9% 100 ML IVPB (09:23)
[2018-09-04] MEDS: LEVOFLOXACIN 500MG/D5W (PMX) 100 ML IVPB (09:23)
[2018-09-04] MEDS: INSULIN GLARGINE [LANTus] (100 UNITS/ML) SYG SC (11:27)
[2018-09-04] MEDS: BUMETANIDE 12 MG in DEXTROSE 5% 72 ML IV (13:09)
[2018-09-04] MEDS: ENOXAPARIN 80 MG/0.8 ML SYG SC (13:21)
[2018-09-04] MEDS: DOCUSATE SODIUM 100 MG CAP PO ×2 (14:37→20:34)
[2018-09-04 19:45] LABS: POTASSIUM 3.7 mmol/L (3.5-5.1)
[2018-09-04] MEDS: ATORVASTATIN 80 MG TAB PO (20:34)
[2018-09-04] MEDS: POTASSIUM CHLORIDE (SR) 10 MEQ TAB PO (22:50)
[2018-09-05] MEDS: ACCUCHECK AT 2AM (Patients on SS coverage) XX (01:45)
[2018-09-05] MEDS: GUAIFENESIN/CODEINE 5ML CUP PO (05:30)
[2018-09-05 06:31] LABS: B-TYPE NATRIURETIC PEPTIDE 3040 PG/ML (0-450)
[2018-09-05 07:23] LABS: PROCALCITONIN 0.14 ng/mL (0.00-0.10)
[2018-09-05] MEDS: INSULIN ASPART [NOVOLOG] 3 ML PEN SC ×4 (07:50→20:32)
[2018-09-05] MEDS: INSULIN GLARGINE [LANTus] (100 UNITS/ML) SYG SC (07:51)
[2018-09-05] MEDS: METOPROLOL 50 MG TAB PO ×2 (08:24→20:30)
[2018-09-05] MEDS: LIDOCAINE 5% PATCH TD (08:24)
[2018-09-05] MEDS: ASPIRIN (EC) 81 MG TAB PO (08:24)
[2018-09-05] MEDS: FAMOTIDINE 20 MG TAB PO (08:25)
[2018-09-05] MEDS: FELODIPINE (ER) 2.5 MG TAB PO (08:25)
[2018-09-05] MEDS: DOCUSATE SODIUM 100 MG CAP PO ×2 (08:25→20:30)
[2018-09-05] MEDS: LEVOFLOXACIN 250MG/D5W (PMX) 50 ML IVPB (08:25)
[2018-09-05 09:29] LABS: ALANINE AMINOTRANSFERASE 89 IU/L (13-69); ALBUMIN 3.1 g/dl (3.3-4.9); ALKALINE PHOSPHATASE 100 IU/L (42-121); ANION GAP 7 (5-13); ASPARTATE AMINO TRANSFERASE 71 IU/L (15-46); BILIRUBIN,INDIRECT 0.2 mg/dl (0-1.1); BILIRUBIN,TOTAL 0.2 mg/dl (0.2-1.3); BLOOD UREA NITROGEN 34 mg/dl (7-20); CARBON DIOXIDE 31 mmol/L (21-31); CHLORIDE 103 mmol/L (97-110); CREATININE 0.88 mg/dl (0.44-1.00); GLUCOSE 199 mg/dl (70-220); POTASSIUM 3.9 mmol/L (3.5-5.1); SODIUM 141 mmol/L (135-144); TOTAL PROTEIN 6.2 g/dl (6.1-8.1)
[2018-09-05] MEDS: POTASSIUM CHLORIDE (SR) 10 MEQ TAB PO (12:25)
[2018-09-05] MEDS: ENOXAPARIN 80 MG/0.8 ML SYG SC (12:28)
[2018-09-05] MEDS: BUMETANIDE 6 MG in DEXTROSE 5% 36 ML IV (12:41)
[2018-09-05] MEDS: ARTIFICIAL TEARS 15 ML OPH BOTH EYES (13:41)
[2018-09-05] MEDS: ATORVASTATIN 80 MG TAB PO (20:30)
[2018-09-06] MEDS: GUAIFENESIN/CODEINE 5ML CUP PO ×3 (00:11→21:32)
[2018-09-06] MEDS: ACCUCHECK AT 2AM (Patients on SS coverage) XX (01:57)
[2018-09-06 05:22] LABS: ADD MAN DIFF? NO
[2018-09-06 05:31] LABS: BASOPHILS % 0.4 % (0.0-2.0); EOSINOPHILS # 0.3 10^3/ul (0.0-0.5); EOSINOPHILS % 3.3 % (0.0-7.0); HEMATOCRIT 28.7 % (37.0-47.0); LYMPHOCYTES # 1.5 10^3/ul (0.8-2.9); LYMPHOCYTES % 16.7 % (15.0-51.0); MEAN CORPUSCULAR HEMOGLOBIN 27.7 pg (29.0-33.0); MEAN CORPUSCULAR HGB CONC 31.4 g/dl (32.0-37.0); MEAN CORPUSCULAR VOLUME 88.3 fl (82.0-101.0); MEAN PLATELET VOLUME 11.6 fl (7.4-10.4); MONOCYTE # 0.7 10^3/ul (0.3-0.9); MONOCYTES % 7.1 % (0.0-11.0); NEUTROPHIL # 6.5 10^3/ul (1.6-7.5); NEUTROPHILS % 70.4 % (39.0-77.0); PLATELET COUNT 263 10^3/UL (140-415); RED BLOOD COUNT 3.25 10^6/ul (4.20-5.40); RED CELL DISTRIBUTION WIDTH 13.3 % (11.5-14.5)
[2018-09-06 05:31] LABS: WHITE BLOOD COUNT 9.2 10^3/ul (4.8-10.8)
[2018-09-06 06:22] LABS: ALANINE AMINOTRANSFERASE 105 IU/L (13-69); ALKALINE PHOSPHATASE 89 IU/L (42-121); ANION GAP 9 (5-13); ASPARTATE AMINO TRANSFERASE 87 IU/L (15-46); BILIRUBIN,INDIRECT 0.3 mg/dl (0-1.1); BILIRUBIN,TOTAL 0.3 mg/dl (0.2-1.3); BLOOD UREA NITROGEN 32 mg/dl (7-20); CARBON DIOXIDE 33 mmol/L (21-31); CHLORIDE 100 mmol/L (97-110); CREATININE 0.94 mg/dl (0.44-1.00); GLUCOSE 150 mg/dl (70-220); MAGNESIUM 1.8 mg/dl (1.7-2.5); PHOSPHORUS 3.5 mg/dl (2.5-4.9); POTASSIUM 4.1 mmol/L (3.5-5.1); SODIUM 142 mmol/L (135-144)
[2018-09-06 06:23] LABS: ALBUMIN 2.9 g/dl (3.3-4.9); ALBUMIN/GLOBULIN RATIO 1.07; TOTAL PROTEIN 5.6 g/dl (6.1-8.1)
[2018-09-06] MEDS: INSULIN GLARGINE [LANTus] (100 UNITS/ML) SYG SC (08:17)
[2018-09-06] MEDS: INSULIN ASPART [NOVOLOG] 3 ML PEN SC ×4 (08:17→21:47)
[2018-09-06] MEDS: LEVOFLOXACIN 250MG/D5W (PMX) 50 ML IVPB (09:04)
[2018-09-06] MEDS: LIDOCAINE 5% PATCH TD (09:04)
[2018-09-06] MEDS: DOCUSATE SODIUM 100 MG CAP PO ×2 (09:05→20:19)
[2018-09-06] MEDS: FELODIPINE (ER) 2.5 MG TAB PO (09:05)
[2018-09-06] MEDS: ASPIRIN (EC) 81 MG TAB PO (09:05)
[2018-09-06] MEDS: METOPROLOL 50 MG TAB PO ×2 (09:05→20:21)
[2018-09-06] MEDS: FAMOTIDINE 20 MG TAB PO (09:05)
[2018-09-06] MEDS: BUMETANIDE 1 MG INJ IV ×2 (09:42→17:48)
[2018-09-06] MEDS: ARTIFICIAL TEARS 15 ML OPH BOTH EYES (10:47)
[2018-09-06] MEDS: ENOXAPARIN 80 MG/0.8 ML SYG SC (13:58)
[2018-09-06] MEDS: ATORVASTATIN 80 MG TAB PO (20:21)
[2018-09-07] MEDS: ACCUCHECK AT 2AM (Patients on SS coverage) XX (02:00)
[2018-09-07 05:10] LABS: B-TYPE NATRIURETIC PEPTIDE 2410 PG/ML (0-450)
[2018-09-07 05:47] LABS: PROCALCITONIN 0.13 ng/mL (0.00-0.10)
[2018-09-07] MEDS: BUMETANIDE 1 MG INJ IV (06:55)
[2018-09-07] MEDS: INSULIN ASPART [NOVOLOG] 3 ML PEN SC ×4 (07:35→21:44)
[2018-09-07 07:56] LABS: ANION GAP 5 (5-13); BLOOD UREA NITROGEN 30 mg/dl (7-20); CALCIUM 8.6 mg/dl (8.4-10.2); CARBON DIOXIDE 32 mmol/L (21-31); CHLORIDE 99 mmol/L (97-110); CREATININE 0.76 mg/dl (0.44-1.00); GLUCOSE 192 mg/dl (70-220); POTASSIUM 3.6 mmol/L (3.5-5.1); SODIUM 136 mmol/L (135-144)
[2018-09-07] MEDS: ASPIRIN (EC) 81 MG TAB PO (10:47)
[2018-09-07] MEDS: METOPROLOL 50 MG TAB PO ×2 (10:52→20:44)
[2018-09-07] MEDS: FAMOTIDINE 20 MG TAB PO (10:52)
[2018-09-07] MEDS: DOCUSATE SODIUM 100 MG CAP PO ×2 (10:52→20:44)
[2018-09-07] MEDS: LEVOFLOXACIN 250MG/D5W (PMX) 50 ML IVPB (10:53)
[2018-09-07] MEDS: FELODIPINE (ER) 2.5 MG TAB PO (10:55)
[2018-09-07] MEDS: POTASSIUM CHLORIDE (SR) 20 MEQ TAB PO (10:56)
[2018-09-07] MEDS: LIDOCAINE 5% PATCH TD (10:56)
[2018-09-07] MEDS: ENOXAPARIN 80 MG/0.8 ML SYG SC (13:34)
[2018-09-07] MEDS: GUAIFENESIN/CODEINE 5ML CUP PO ×2 (14:00→22:32)
[2018-09-07] MEDS ORDERED: BUMETANIDE 1 MG INJ IV (18:00)
[2018-09-07] MEDS: BUMETANIDE 2 MG in DEXTROSE 5% 17 ML IV (18:48)
[2018-09-07] MEDS: ATORVASTATIN 80 MG TAB PO (20:44)
[2018-09-07] MEDS: ARTIFICIAL TEARS 15 ML OPH BOTH EYES (22:32)
[2018-09-08] MEDS: ACCUCHECK AT 2AM (Patients on SS coverage) XX (02:00)
[2018-09-08] MEDS: ACETAMINOPHEN 325 MG TAB PO ×2 (03:02→23:14)
[2018-09-08 05:33] LABS: ANION GAP 8 (5-13); BLOOD UREA NITROGEN 24 mg/dl (7-20); CALCIUM 8.6 mg/dl (8.4-10.2); CARBON DIOXIDE 31 mmol/L (21-31); CHLORIDE 98 mmol/L (97-110); CREATININE 0.79 mg/dl (0.44-1.00); GLUCOSE 194 mg/dl (70-220); POTASSIUM 3.7 mmol/L (3.5-5.1); SODIUM 137 mmol/L (135-144)
[2018-09-08 05:39] LABS: B-TYPE NATRIURETIC PEPTIDE 2830 PG/ML (0-450)
[2018-09-08] MEDS: BUMETANIDE 2 MG in DEXTROSE 5% 17 ML IV ×2 (06:46→17:38)
[2018-09-08] MEDS: INSULIN ASPART [NOVOLOG] 3 ML PEN SC ×4 (07:53→20:36)
[2018-09-08] MEDS: POTASSIUM CHLORIDE (SR) 10 MEQ TAB PO (08:48)
[2018-09-08] MEDS: ASPIRIN (EC) 81 MG TAB PO (08:48)
[2018-09-08] MEDS: FAMOTIDINE 20 MG TAB PO (08:48)
[2018-09-08] MEDS: DOCUSATE SODIUM 100 MG CAP PO ×2 (08:48→20:35)
[2018-09-08] MEDS: FELODIPINE (ER) 2.5 MG TAB PO (08:49)
[2018-09-08] MEDS: METOPROLOL 50 MG TAB PO ×2 (08:49→20:36)
[2018-09-08] MEDS: LIDOCAINE 5% PATCH TD (08:50)
[2018-09-08] MEDS: INSULIN GLARGINE [LANTus] (100 UNITS/ML) SYG SC (09:04)
[2018-09-08] MEDS: GUAIFENESIN/CODEINE 5ML CUP PO (12:56)
[2018-09-08] MEDS: LEVOFLOXACIN 250MG/D5W (PMX) 50 ML IVPB (12:56)
[2018-09-08] MEDS: ARTIFICIAL TEARS 15 ML OPH BOTH EYES (12:56)
[2018-09-08] MEDS: ENOXAPARIN 80 MG/0.8 ML SYG SC (13:05)
[2018-09-08] MEDS: ATORVASTATIN 80 MG TAB PO (20:34)
[2018-09-09] MEDS: ACCUCHECK AT 2AM (Patients on SS coverage) XX (02:00)
[2018-09-09 05:18] LABS: ADD MAN DIFF? NO
[2018-09-09 05:19] LABS: WHITE BLOOD COUNT 7.7 10^3/ul (4.8-10.8)
[2018-09-09 05:19] LABS: BASOPHILS % 0.4 % (0.0-2.0); EOSINOPHILS # 0.2 10^3/ul (0.0-0.5); EOSINOPHILS % 2.3 % (0.0-7.0); HEMATOCRIT 26.2 % (37.0-47.0); HEMOGLOBIN 8.4 g/dl (12.0-16.0); LYMPHOCYTES # 1.5 10^3/ul (0.8-2.9); MEAN CORPUSCULAR HEMOGLOBIN 27.5 pg (29.0-33.0); MEAN CORPUSCULAR HGB CONC 32.1 g/dl (32.0-37.0); MEAN CORPUSCULAR VOLUME 85.9 fl (82.0-101.0); MEAN PLATELET VOLUME 11.9 fl (7.4-10.4); MONOCYTE # 0.8 10^3/ul (0.3-0.9); MONOCYTES % 10.7 % (0.0-11.0); NEUTROPHIL # 5.1 10^3/ul (1.6-7.5); NEUTROPHILS % 65.8 % (39.0-77.0); PLATELET COUNT 312 10^3/UL (140-415); RED BLOOD COUNT 3.05 10^6/ul (4.20-5.40); RED CELL DISTRIBUTION WIDTH 13.3 % (11.5-14.5)
[2018-09-09 05:28] LABS: ALANINE AMINOTRANSFERASE 136 IU/L (13-69); ALBUMIN 2.9 g/dl (3.3-4.9); ALBUMIN/GLOBULIN RATIO 0.96; ALKALINE PHOSPHATASE 90 IU/L (42-121); ANION GAP 5 (5-13); ASPARTATE AMINO TRANSFERASE 107 IU/L (15-46); BILIRUBIN,INDIRECT 0.4 mg/dl (0-1.1); BILIRUBIN,TOTAL 0.4 mg/dl (0.2-1.3); BLOOD UREA NITROGEN 24 mg/dl (7-20); CALCIUM 8.5 mg/dl (8.4-10.2); CARBON DIOXIDE 33 mmol/L (21-31); CHLORIDE 98 mmol/L (97-110); CREATININE 0.91 mg/dl (0.44-1.00); GLUCOSE 148 mg/dl (70-220); MAGNESIUM 1.7 mg/dl (1.7-2.5); POTASSIUM 3.7 mmol/L (3.5-5.1); SODIUM 136 mmol/L (135-144); TOTAL PROTEIN 5.9 g/dl (6.1-8.1)
[2018-09-09] MEDS: BUMETANIDE 2 MG in DEXTROSE 5% 17 ML IV ×2 (05:58→17:25)
[2018-09-09] MEDS: INSULIN GLARGINE [LANTus] (100 UNITS/ML) SYG SC (07:50)
[2018-09-09] MEDS: INSULIN ASPART [NOVOLOG] 3 ML PEN SC ×4 (07:51→21:00)
[2018-09-09] MEDS: LIDOCAINE 5% PATCH TD (08:49)
[2018-09-09] MEDS: ASPIRIN (EC) 81 MG TAB PO (08:49)
[2018-09-09] MEDS: DOCUSATE SODIUM 100 MG CAP PO ×2 (08:49→21:00)
[2018-09-09] MEDS: FAMOTIDINE 20 MG TAB PO (08:49)
[2018-09-09] MEDS: METOPROLOL 50 MG TAB PO ×2 (08:49→20:58)
[2018-09-09] MEDS: FELODIPINE (ER) 2.5 MG TAB PO (08:49)
[2018-09-09] MEDS: LEVOFLOXACIN 250MG/D5W (PMX) 50 ML IVPB (08:50)
[2018-09-09 09:08] LABS: IRON 28 ug/dl (35-150)
[2018-09-09 09:19] LABS: % IRON SATURATION 14 % SAT (22-52); TOTAL IRON BINDING CAPACITY 206 ug/dl (241-421)
[2018-09-09] MEDS: ENOXAPARIN 80 MG/0.8 ML SYG SC (12:54)
[2018-09-09] MEDS: ATORVASTATIN 80 MG TAB PO (20:58)
[2018-09-09] MEDS: SOD CHLORIDE 0.9% 100 ML (22:10)
[2018-09-09] MEDS: IOHEXOL 100 ML (22:11)
[2018-09-10] MEDS: ACCUCHECK AT 2AM (Patients on SS coverage) XX (02:00)
[2018-09-10 05:40] LABS: ADD MAN DIFF? NO
[2018-09-10 05:49] LABS: BASOPHIL # 0.1 10^3/ul (0.0-0.1); BASOPHILS % 0.8 % (0.0-2.0); EOSINOPHILS # 0.2 10^3/ul (0.0-0.5); EOSINOPHILS % 2.8 % (0.0-7.0); HEMATOCRIT 27.7 % (37.0-47.0); HEMOGLOBIN 9.1 g/dl (12.0-16.0); LYMPHOCYTES # 1.5 10^3/ul (0.8-2.9); LYMPHOCYTES % 19.7 % (15.0-51.0); MEAN CORPUSCULAR HEMOGLOBIN 27.6 pg (29.0-33.0); MEAN CORPUSCULAR HGB CONC 32.9 g/dl (32.0-37.0); MEAN CORPUSCULAR VOLUME 83.9 fl (82.0-101.0); MEAN PLATELET VOLUME 11.8 fl (7.4-10.4); MONOCYTE # 0.8 10^3/ul (0.3-0.9); MONOCYTES % 11.1 % (0.0-11.0); NEUTROPHIL # 4.8 10^3/ul (1.6-7.5); NEUTROPHILS % 64.7 % (39.0-77.0); PLATELET COUNT 382 10^3/UL (140-415); RED CELL DISTRIBUTION WIDTH 13.2 % (11.5-14.5)
[2018-09-10 05:49] LABS: WHITE BLOOD COUNT 7.5 10^3/ul (4.8-10.8)
[2018-09-10] MEDS: BUMETANIDE 2 MG in DEXTROSE 5% 17 ML IV ×2 (06:26→17:54)
[2018-09-10 06:30] LABS: ALANINE AMINOTRANSFERASE 172 IU/L (13-69); ALBUMIN 3.1 g/dl (3.3-4.9); ALBUMIN/GLOBULIN RATIO 1.03; ALKALINE PHOSPHATASE 105 IU/L (42-121); ANION GAP 12 (5-13); ASPARTATE AMINO TRANSFERASE 136 IU/L (15-46); BILIRUBIN,INDIRECT 0.4 mg/dl (0-1.1); BILIRUBIN,TOTAL 0.4 mg/dl (0.2-1.3); BLOOD UREA NITROGEN 23 mg/dl (7-20); CARBON DIOXIDE 33 mmol/L (21-31); CHLORIDE 96 mmol/L (97-110); CREATININE 0.87 mg/dl (0.44-1.00); GLUCOSE 152 mg/dl (70-220); MAGNESIUM 1.7 mg/dl (1.7-2.5); POTASSIUM 3.5 mmol/L (3.5-5.1); SODIUM 141 mmol/L (135-144); TOTAL PROTEIN 6.1 g/dl (6.1-8.1)
[2018-09-10] MEDS: INSULIN ASPART [NOVOLOG] 3 ML PEN SC ×4 (07:47→20:37)
[2018-09-10] MEDS: INSULIN GLARGINE [LANTus] (100 UNITS/ML) SYG SC (07:47)
[2018-09-10] MEDS: DOCUSATE SODIUM 100 MG CAP PO ×2 (08:19→20:35)
[2018-09-10] MEDS: LIDOCAINE 5% PATCH TD (08:20)
[2018-09-10] MEDS: FELODIPINE (ER) 2.5 MG TAB PO (08:20)
[2018-09-10] MEDS: ASPIRIN (EC) 81 MG TAB PO (08:20)
[2018-09-10] MEDS: FAMOTIDINE 20 MG TAB PO (08:20)
[2018-09-10] MEDS: METOPROLOL 50 MG TAB PO ×2 (08:20→20:36)
[2018-09-10] MEDS: MAGNESIUM OXIDE 400 MG TAB PO (08:38)
[2018-09-10] MEDS: POTASSIUM CHLORIDE (SR) 20 MEQ TAB PO ×2 (08:39→20:35)
[2018-09-10 09:21] LABS: PROCALCITONIN 0.11 ng/mL (0.00-0.10)
[2018-09-10] MEDS: DOXYCYCLINE 100 MG TAB PO ×2 (09:55→20:36)
[2018-09-10] MEDS: MEROPENEM 1 GM/50ML(PMX) 50 ML IVPB ×2 (09:55→20:35)
[2018-09-10] MEDS: ACETAMINOPHEN 325 MG TAB PO ×2 (11:35→22:42)
[2018-09-10] MEDS: ENOXAPARIN 80 MG/0.8 ML SYG SC (13:39)
[2018-09-10 16:11] LABS: PLATELET COUNT 443 10^3/UL (140-415)
[2018-09-10 16:29] LABS: INR 1.21; PROTIME 15.4 Sec (11.9-14.9); PT RATIO 1.2
[2018-09-10 16:30] LABS: PARTIAL THROMBOPLASTIN TIME 44.9 Sec (23.0-35.0); THROMBIN TIME 19.5 SEC (13.8-19.1)
[2018-09-10] MEDS: ATORVASTATIN 80 MG TAB PO (20:35)
[2018-09-10] MEDS: LORAZEPAM 0.5 MG TAB PO (22:42)
[2018-09-11] MEDS: ACCUCHECK AT 2AM (Patients on SS coverage) XX (02:00)
[2018-09-11] MEDS: BUMETANIDE 2 MG in DEXTROSE 5% 17 ML IV ×2 (05:37→17:46)
[2018-09-11 06:19] LABS: ADD MAN DIFF? NO
[2018-09-11 06:24] LABS: BASOPHIL # 0.1 10^3/ul (0.0-0.1); BASOPHILS % 0.8 % (0.0-2.0); EOSINOPHILS # 0.2 10^3/ul (0.0-0.5); EOSINOPHILS % 3.2 % (0.0-7.0); HEMATOCRIT 28.8 % (37.0-47.0); HEMOGLOBIN 9.3 g/dl (12.0-16.0); LYMPHOCYTES # 1.5 10^3/ul (0.8-2.9); LYMPHOCYTES % 24.1 % (15.0-51.0); MEAN CORPUSCULAR HEMOGLOBIN 27.7 pg (29.0-33.0); MEAN CORPUSCULAR HGB CONC 32.3 g/dl (32.0-37.0); MEAN CORPUSCULAR VOLUME 85.7 fl (82.0-101.0); MEAN PLATELET VOLUME 11.7 fl (7.4-10.4); MONOCYTE # 0.7 10^3/ul (0.3-0.9); MONOCYTES % 11.1 % (0.0-11.0); NEUTROPHIL # 3.8 10^3/ul (1.6-7.5); NEUTROPHILS % 59.7 % (39.0-77.0); PLATELET COUNT 439 10^3/UL (140-415); RED BLOOD COUNT 3.36 10^6/ul (4.20-5.40); RED CELL DISTRIBUTION WIDTH 13.4 % (11.5-14.5)
[2018-09-11 06:24] LABS: WHITE BLOOD COUNT 6.3 10^3/ul (4.8-10.8)
[2018-09-11] MEDS: INSULIN GLARGINE [LANTus] (100 UNITS/ML) SYG SC (07:41)
[2018-09-11] MEDS: INSULIN ASPART [NOVOLOG] 3 ML PEN SC ×4 (07:42→22:39)
[2018-09-11 08:02] LABS: ALANINE AMINOTRANSFERASE 210 IU/L (13-69); ALBUMIN 3.2 g/dl (3.3-4.9); ALBUMIN/GLOBULIN RATIO 0.96; ALKALINE PHOSPHATASE 114 IU/L (42-121); ANION GAP 7 (5-13); ASPARTATE AMINO TRANSFERASE 162 IU/L (15-46); BILIRUBIN,INDIRECT 0.3 mg/dl (0-1.1); BILIRUBIN,TOTAL 0.3 mg/dl (0.2-1.3); BLOOD UREA NITROGEN 24 mg/dl (7-20); CALCIUM 8.9 mg/dl (8.4-10.2); CARBON DIOXIDE 35 mmol/L (21-31); CHLORIDE 98 mmol/L (97-110); CREATININE 0.97 mg/dl (0.44-1.00); GLUCOSE 127 mg/dl (70-220); POTASSIUM 4.6 mmol/L (3.5-5.1); SODIUM 140 mmol/L (135-144); TOTAL PROTEIN 6.5 g/dl (6.1-8.1)
[2018-09-11 08:46] LABS: ERYTHROCYTE SEDIMENTATION RATE 128 mm/Hr (0-30)
[2018-09-11] MEDS: LIDOCAINE 5% PATCH TD (10:10)
[2018-09-11] MEDS: MEROPENEM 1 GM/50ML(PMX) 50 ML IVPB ×2 (10:11→21:59)
[2018-09-11] MEDS: FAMOTIDINE 20 MG TAB PO (10:11)
[2018-09-11] MEDS: ASPIRIN (EC) 81 MG TAB PO (10:11)
[2018-09-11] MEDS: DOXYCYCLINE 100 MG TAB PO ×2 (10:11→21:59)
[2018-09-11] MEDS: MAGNESIUM OXIDE 400 MG TAB PO (10:13)
[2018-09-11] MEDS: DOCUSATE SODIUM 100 MG CAP PO ×2 (10:13→21:59)
[2018-09-11] MEDS: METOPROLOL 50 MG TAB PO ×2 (10:13→22:00)
[2018-09-11] MEDS: FELODIPINE (ER) 2.5 MG TAB PO (10:16)
[2018-09-11] MEDS: ENOXAPARIN 80 MG/0.8 ML SYG SC (12:35)
[2018-09-12] MEDS: ACCUCHECK AT 2AM (Patients on SS coverage) XX (02:34)
[2018-09-12 06:05] LABS: ADD MAN DIFF? NO
[2018-09-12] MEDS: BUMETANIDE 2 MG in DEXTROSE 5% 17 ML IV (06:11)
[2018-09-12 06:15] LABS: WHITE BLOOD COUNT 5.5 10^3/ul (4.8-10.8)
[2018-09-12 06:15] LABS: BASOPHIL # 0.1 10^3/ul (0.0-0.1); BASOPHILS % 0.9 % (0.0-2.0); EOSINOPHILS # 0.2 10^3/ul (0.0-0.5); EOSINOPHILS % 3.5 % (0.0-7.0); HEMATOCRIT 28.1 % (37.0-47.0); HEMOGLOBIN 9.1 g/dl (12.0-16.0); LYMPHOCYTES # 1.6 10^3/ul (0.8-2.9); LYMPHOCYTES % 28.9 % (15.0-51.0); MEAN CORPUSCULAR HEMOGLOBIN 27.7 pg (29.0-33.0); MEAN CORPUSCULAR HGB CONC 32.4 g/dl (32.0-37.0); MEAN CORPUSCULAR VOLUME 85.4 fl (82.0-101.0); MEAN PLATELET VOLUME 11.4 fl (7.4-10.4); MONOCYTE # 0.7 10^3/ul (0.3-0.9); MONOCYTES % 12.6 % (0.0-11.0); NEUTROPHIL # 2.9 10^3/ul (1.6-7.5); NEUTROPHILS % 53.2 % (39.0-77.0); PLATELET COUNT 452 10^3/UL (140-415); RED BLOOD COUNT 3.29 10^6/ul (4.20-5.40); RED CELL DISTRIBUTION WIDTH 13.2 % (11.5-14.5)
[2018-09-12 06:30] LABS: ALANINE AMINOTRANSFERASE 191 IU/L (13-69); ALBUMIN 3.2 g/dl (3.3-4.9); ALBUMIN/GLOBULIN RATIO 1.06; ALKALINE PHOSPHATASE 114 IU/L (42-121); ANION GAP 8 (5-13); ASPARTATE AMINO TRANSFERASE 125 IU/L (15-46); BILIRUBIN,INDIRECT 0.2 mg/dl (0-1.1); BILIRUBIN,TOTAL 0.2 mg/dl (0.2-1.3); BLOOD UREA NITROGEN 30 mg/dl (7-20); CALCIUM 9.4 mg/dl (8.4-10.2); CARBON DIOXIDE 34 mmol/L (21-31); CHLORIDE 97 mmol/L (97-110); CREATININE 0.89 mg/dl (0.44-1.00); GLUCOSE 128 mg/dl (70-220); POTASSIUM 4.1 mmol/L (3.5-5.1); SODIUM 139 mmol/L (135-144); TOTAL PROTEIN 6.2 g/dl (6.1-8.1)
[2018-09-12] MEDS: INSULIN GLARGINE [LANTus] (100 UNITS/ML) SYG SC (08:51)
[2018-09-12] MEDS: INSULIN ASPART [NOVOLOG] 3 ML PEN SC ×4 (08:53→22:03)
[2018-09-12] MEDS: MEROPENEM 1 GM/50ML(PMX) 50 ML IVPB ×2 (08:55→21:17)
[2018-09-12] MEDS: DOCUSATE SODIUM 100 MG CAP PO ×2 (08:55→21:18)
[2018-09-12] MEDS: DOXYCYCLINE 100 MG TAB PO ×2 (08:55→21:18)
[2018-09-12] MEDS: FELODIPINE (ER) 2.5 MG TAB PO (08:55)
[2018-09-12] MEDS: FAMOTIDINE 20 MG TAB PO (08:56)
[2018-09-12] MEDS: MAGNESIUM OXIDE 400 MG TAB PO (08:56)
[2018-09-12] MEDS: METOPROLOL 50 MG TAB PO ×2 (08:56→21:19)
[2018-09-12] MEDS: LIDOCAINE 5% PATCH TD (09:01)
[2018-09-12] MEDS: ASPIRIN (EC) 81 MG TAB PO (09:44)
[2018-09-12] MEDS: ARTIFICIAL TEARS 15 ML OPH BOTH EYES (10:50)
[2018-09-12 13:31] LABS: ANA SCREEN NEGATIVE (NEGATIVE)
[2018-09-12] MEDS: ENOXAPARIN 80 MG/0.8 ML SYG SC (14:11)
[2018-09-13] MEDS: ACCUCHECK AT 2AM (Patients on SS coverage) XX (02:00)
[2018-09-13 06:15] LABS: ADD MAN DIFF? NO
[2018-09-13 06:19] LABS: WHITE BLOOD COUNT 5.8 10^3/ul (4.8-10.8)
[2018-09-13 06:19] LABS: BASOPHIL # 0.1 10^3/ul (0.0-0.1); BASOPHILS % 0.9 % (0.0-2.0); EOSINOPHILS # 0.2 10^3/ul (0.0-0.5); EOSINOPHILS % 3.7 % (0.0-7.0); HEMATOCRIT 29.3 % (37.0-47.0); HEMOGLOBIN 9.4 g/dl (12.0-16.0); LYMPHOCYTES # 1.7 10^3/ul (0.8-2.9); LYMPHOCYTES % 29.6 % (15.0-51.0); MEAN CORPUSCULAR HEMOGLOBIN 27.2 pg (29.0-33.0); MEAN CORPUSCULAR HGB CONC 32.1 g/dl (32.0-37.0); MEAN CORPUSCULAR VOLUME 84.7 fl (82.0-101.0); MEAN PLATELET VOLUME 11.4 fl (7.4-10.4); MONOCYTE # 0.7 10^3/ul (0.3-0.9); MONOCYTES % 12.5 % (0.0-11.0); NEUTROPHILS % 52.3 % (39.0-77.0); PLATELET COUNT 508 10^3/UL (140-415); RED BLOOD COUNT 3.46 10^6/ul (4.20-5.40); RED CELL DISTRIBUTION WIDTH 13.4 % (11.5-14.5)
[2018-09-13 06:52] LABS: ALANINE AMINOTRANSFERASE 159 IU/L (13-69); ALBUMIN 3.3 g/dl (3.3-4.9); ALBUMIN/GLOBULIN RATIO 0.97; ALKALINE PHOSPHATASE 120 IU/L (42-121); ANION GAP 8 (5-13); ASPARTATE AMINO TRANSFERASE 89 IU/L (15-46); BILIRUBIN,INDIRECT 0.2 mg/dl (0-1.1); BILIRUBIN,TOTAL 0.2 mg/dl (0.2-1.3); BLOOD UREA NITROGEN 36 mg/dl (7-20); CALCIUM 9.2 mg/dl (8.4-10.2); CARBON DIOXIDE 36 mmol/L (21-31); CHLORIDE 95 mmol/L (97-110); CREATININE 0.99 mg/dl (0.44-1.00); GLUCOSE 120 mg/dl (70-220); POTASSIUM 4.2 mmol/L (3.5-5.1); SODIUM 139 mmol/L (135-144); TOTAL PROTEIN 6.7 g/dl (6.1-8.1)
[2018-09-13 07:35] LABS: PROCALCITONIN 0.07 ng/mL (0.00-0.10)
[2018-09-13] MEDS: INSULIN ASPART [NOVOLOG] 3 ML PEN SC ×4 (07:59→22:21)
[2018-09-13 08:15] LABS: LACTATE DEHYDROGENASE 702 IU/L (313-618)
[2018-09-13] MEDS: MEROPENEM 1 GM/50ML(PMX) 50 ML IVPB ×2 (08:25→20:21)
[2018-09-13] MEDS: INSULIN GLARGINE [LANTus] (100 UNITS/ML) SYG SC (08:25)
[2018-09-13] MEDS: DOXYCYCLINE 100 MG TAB PO ×2 (08:25→20:21)
[2018-09-13] MEDS: METOPROLOL 50 MG TAB PO ×2 (08:26→20:34)
[2018-09-13] MEDS: MAGNESIUM OXIDE 400 MG TAB PO (08:26)
[2018-09-13] MEDS: FAMOTIDINE 20 MG TAB PO (08:26)
[2018-09-13] MEDS: DOCUSATE SODIUM 100 MG CAP PO ×2 (08:26→20:21)
[2018-09-13] MEDS: ASPIRIN (EC) 81 MG TAB PO (08:26)
[2018-09-13] MEDS: FELODIPINE (ER) 2.5 MG TAB PO (08:27)
[2018-09-13] MEDS: LIDOCAINE 5% PATCH TD (08:27)
[2018-09-13] MEDS: BUMETANIDE 2 MG in DEXTROSE 5% 17 ML IV (09:35)
[2018-09-13] MEDS: ENOXAPARIN 80 MG/0.8 ML SYG SC (13:20)
[2018-09-14] MEDS: ACCUCHECK AT 2AM (Patients on SS coverage) XX (02:54)
[2018-09-14 06:19] LABS: HAAIG REFLEX REFLEX FILED
[2018-09-14 06:22] LABS: ADD MAN DIFF? NO
[2018-09-14 06:30] LABS: BASOPHIL # 0.1 10^3/ul (0.0-0.1); BASOPHILS % 1.2 % (0.0-2.0); EOSINOPHILS # 0.2 10^3/ul (0.0-0.5); EOSINOPHILS % 4.2 % (0.0-7.0); HEMATOCRIT 30.1 % (37.0-47.0); HEMOGLOBIN 9.6 g/dl (12.0-16.0); LYMPHOCYTES # 1.7 10^3/ul (0.8-2.9); LYMPHOCYTES % 29.5 % (15.0-51.0); MEAN CORPUSCULAR HEMOGLOBIN 27.5 pg (29.0-33.0); MEAN CORPUSCULAR HGB CONC 31.9 g/dl (32.0-37.0); MEAN CORPUSCULAR VOLUME 86.2 fl (82.0-101.0); MEAN PLATELET VOLUME 11.2 fl (7.4-10.4); MONOCYTE # 0.7 10^3/ul (0.3-0.9); MONOCYTES % 11.6 % (0.0-11.0); NEUTROPHILS % 52.6 % (39.0-77.0); PLATELET COUNT 528 10^3/UL (140-415); RED BLOOD COUNT 3.49 10^6/ul (4.20-5.40); RED CELL DISTRIBUTION WIDTH 13.6 % (11.5-14.5)
[2018-09-14 06:30] LABS: WHITE BLOOD COUNT 5.8 10^3/ul (4.8-10.8)
[2018-09-14 07:23] LABS: ALANINE AMINOTRANSFERASE 166 IU/L (13-69); ALBUMIN 3.2 g/dl (3.3-4.9); ALBUMIN/GLOBULIN RATIO 1.18; ALKALINE PHOSPHATASE 114 IU/L (42-121); ANION GAP 9 (5-13); ASPARTATE AMINO TRANSFERASE 95 IU/L (15-46); BILIRUBIN,INDIRECT 0.1 mg/dl (0-1.1); BILIRUBIN,TOTAL 0.1 mg/dl (0.2-1.3); BLOOD UREA NITROGEN 37 mg/dl (7-20); CALCIUM 9.9 mg/dl (8.4-10.2); CARBON DIOXIDE 36 mmol/L (21-31); CHLORIDE 94 mmol/L (97-110); CREATININE 0.82 mg/dl (0.44-1.00); GLUCOSE 106 mg/dl (70-220); POTASSIUM 4.7 mmol/L (3.5-5.1); SODIUM 139 mmol/L (135-144); TOTAL PROTEIN 5.9 g/dl (6.1-8.1)
[2018-09-14] MEDS: INSULIN ASPART [NOVOLOG] 3 ML PEN SC ×4 (07:41→21:25)
[2018-09-14 07:53] LABS: HEPATITIS B SURFACE ANTIGEN NEGATIVE (NEGATIVE)
[2018-09-14 08:11] LABS: HEPATITIS B CORE ANTIBODY NEGATIVE (NEGATIVE); HEPATITIS C VIRAL ANTIBODY NEGATIVE (NEGATIVE)
[2018-09-14] MEDS: DOCUSATE SODIUM 100 MG CAP PO ×2 (08:24→20:32)
[2018-09-14] MEDS: ASPIRIN (EC) 81 MG TAB PO (08:24)
[2018-09-14] MEDS: FAMOTIDINE 20 MG TAB PO (08:24)
[2018-09-14] MEDS: DOXYCYCLINE 100 MG TAB PO ×2 (08:24→20:32)
[2018-09-14] MEDS: MAGNESIUM OXIDE 400 MG TAB PO (08:24)
[2018-09-14] MEDS: METOPROLOL 50 MG TAB PO ×2 (08:25→20:33)
[2018-09-14] MEDS: FELODIPINE (ER) 2.5 MG TAB PO (08:25)
[2018-09-14] MEDS: MEROPENEM 1 GM/50ML(PMX) 50 ML IVPB ×2 (08:25→20:32)
[2018-09-14] MEDS: BUMETANIDE 2 MG in DEXTROSE 5% 17 ML IV (08:25)
[2018-09-14] MEDS: LIDOCAINE 5% PATCH TD (08:26)
[2018-09-14] MEDS: INSULIN GLARGINE [LANTus] (100 UNITS/ML) SYG SC (08:30)
[2018-09-14 08:36] LABS: IRON 44 ug/dl (35-150)
[2018-09-14 08:45] LABS: % IRON SATURATION 18 % SAT (22-52); TOTAL IRON BINDING CAPACITY 242 ug/dl (241-421)
[2018-09-14] MEDS: ENOXAPARIN 80 MG/0.8 ML SYG SC (13:46)
[2018-09-15] MEDS: ACCUCHECK AT 2AM (Patients on SS coverage) XX (02:00)
[2018-09-15 05:51] LABS: ADD MAN DIFF? NO
[2018-09-15 06:01] LABS: BASOPHIL # 0.1 10^3/ul (0.0-0.1); BASOPHILS % 0.8 % (0.0-2.0); EOSINOPHILS # 0.2 10^3/ul (0.0-0.5); EOSINOPHILS % 2.5 % (0.0-7.0); HEMOGLOBIN 8.7 g/dl (12.0-16.0); LYMPHOCYTES # 1.5 10^3/ul (0.8-2.9); LYMPHOCYTES % 22.8 % (15.0-51.0); MEAN CORPUSCULAR HEMOGLOBIN 27.3 pg (29.0-33.0); MEAN CORPUSCULAR HGB CONC 32.2 g/dl (32.0-37.0); MEAN CORPUSCULAR VOLUME 84.6 fl (82.0-101.0); MEAN PLATELET VOLUME 11.3 fl (7.4-10.4); MONOCYTE # 0.7 10^3/ul (0.3-0.9); MONOCYTES % 11.7 % (0.0-11.0); NEUTROPHIL # 3.9 10^3/ul (1.6-7.5); NEUTROPHILS % 61.6 % (39.0-77.0); PLATELET COUNT 443 10^3/UL (140-415); RED BLOOD COUNT 3.19 10^6/ul (4.20-5.40); RED CELL DISTRIBUTION WIDTH 13.4 % (11.5-14.5)
[2018-09-15 06:01] LABS: WHITE BLOOD COUNT 6.4 10^3/ul (4.8-10.8)
[2018-09-15 06:53] LABS: ALANINE AMINOTRANSFERASE 120 IU/L (13-69); ALBUMIN 3.2 g/dl (3.3-4.9); ALKALINE PHOSPHATASE 127 IU/L (42-121); ANION GAP 7 (5-13); ASPARTATE AMINO TRANSFERASE 57 IU/L (15-46); BILIRUBIN,INDIRECT 0.2 mg/dl (0-1.1); BILIRUBIN,TOTAL 0.2 mg/dl (0.2-1.3); BLOOD UREA NITROGEN 38 mg/dl (7-20); CALCIUM 9.3 mg/dl (8.4-10.2); CARBON DIOXIDE 33 mmol/L (21-31); CHLORIDE 96 mmol/L (97-110); GLUCOSE 142 mg/dl (70-220); POTASSIUM 4.4 mmol/L (3.5-5.1); SODIUM 136 mmol/L (135-144); TOTAL PROTEIN 6.4 g/dl (6.1-8.1)
[2018-09-15] MEDS ORDERED: IODIXANOL LOCM 100 ML BTL (07:03)
[2018-09-15] MEDS ORDERED: LIDOCAINE 1% (MDV) 20 ML INJ (07:03)
[2018-09-15] MEDS ORDERED: HEPARIN 1000 UNITS/ML 10 ML INJ ×2 (07:03→08:45)
[2018-09-15] MEDS ORDERED: FENTAnyl 50 MCG/ML VIAL (07:04)
[2018-09-15] MEDS ORDERED: NITROGLYCERIN (IC) 100 MCG/ML INJ (07:04)
[2018-09-15] MEDS ORDERED: VERAPAMIL 5 MG INJ (07:04)
[2018-09-15] MEDS ORDERED: MIDAZOLAM 1 MG/ML 2 ML INJ (07:04)
[2018-09-15] MEDS: INSULIN GLARGINE [LANTus] (100 UNITS/ML) SYG SC (07:33)
[2018-09-15] MEDS: INSULIN ASPART [NOVOLOG] 3 ML PEN SC ×4 (07:33→20:26)
[2018-09-15] MEDS ORDERED: CLOPIDOGREL 300 MG TAB (08:35)
[2018-09-15] MEDS ORDERED: ASPIRIN 81 MG TAB (08:37)
[2018-09-15] MEDS ORDERED: ONDANSETRON 4 MG INJ (08:54)
[2018-09-15] MEDS: FAMOTIDINE 20 MG INJ IV (09:00)
[2018-09-15] MEDS: LIDOCAINE 5% PATCH TD (09:00)
[2018-09-15] MEDS: MEROPENEM 1 GM/50ML(PMX) 50 ML IVPB (09:00)
[2018-09-15] MEDS: DOCUSATE SODIUM 100 MG CAP PO ×2 (09:00→20:23)
[2018-09-15] MEDS: FELODIPINE (ER) 2.5 MG TAB PO (09:00)
[2018-09-15] MEDS: ASPIRIN (EC) 81 MG TAB PO (09:00)
[2018-09-15] MEDS: FAMOTIDINE 20 MG TAB PO (09:00)
[2018-09-15] MEDS: MAGNESIUM HYDROXIDE 30ML CUP PO (09:00)
[2018-09-15] MEDS: METOPROLOL 50 MG TAB PO ×2 (09:00→20:24)
[2018-09-15] MEDS: DOXYCYCLINE 100 MG TAB PO ×2 (09:00→20:23)
[2018-09-15] MEDS: MAGNESIUM OXIDE 400 MG TAB PO (09:00)
[2018-09-15 09:53] LABS: PROCALCITONIN 0.09 ng/mL (0.00-0.10)
[2018-09-15] MEDS ORDERED: OXYCODONE/ACETAMINOPHEN (5/325) TAB PO (10:00)
[2018-09-15] MEDS ORDERED: AL HYDROX/MG HYDROX/SIMETH 30 ML CUP PO (10:00)
[2018-09-15] MEDS ORDERED: ONDANSETRON 4 MG INJ IV (10:00)
[2018-09-15] MEDS ORDERED: ACETAMINOPHEN 325 MG TAB PO (10:00)
[2018-09-15] MEDS ORDERED: morphine 2 MG INJ IV (10:00)
[2018-09-15] MEDS: SOD CHLORIDE 0.45% 1,000 ML IV (13:00)
[2018-09-16] MEDS: ACCUCHECK AT 2AM (Patients on SS coverage) XX (02:00)
[2018-09-16] MEDS: ARTIFICIAL TEARS 15 ML OPH BOTH EYES (02:48)
[2018-09-16] MEDS: INSULIN GLARGINE [LANTus] (100 UNITS/ML) SYG SC (07:48)
[2018-09-16] MEDS: INSULIN ASPART [NOVOLOG] 3 ML PEN SC ×4 (08:07→21:00)
[2018-09-16] MEDS: METOPROLOL 50 MG TAB PO ×2 (09:00→21:45)
[2018-09-16] MEDS: DOXYCYCLINE 100 MG TAB PO ×2 (09:24→21:44)
[2018-09-16] MEDS: ASPIRIN (EC) 81 MG TAB PO (09:24)
[2018-09-16] MEDS: FAMOTIDINE 20 MG TAB PO (09:25)
[2018-09-16] MEDS: FELODIPINE (ER) 2.5 MG TAB PO (09:25)
[2018-09-16] MEDS: MAGNESIUM OXIDE 400 MG TAB PO (09:25)
[2018-09-16] MEDS: CLOPIDOGREL 75 MG TAB PO (09:25)
[2018-09-16] MEDS: DOCUSATE SODIUM 100 MG CAP PO ×2 (09:25→21:44)
[2018-09-16] MEDS: LIDOCAINE 5% PATCH TD (09:31)
[2018-09-16 12:57] LABS: ANCA SCREEN NEGATIVE (NEGATIVE)
[2018-09-16 13:47] LABS: MYELOPEROXIDASE ANTIBODY <1.0 AI; PROTEINASE-3 ANTIBODY <1.0 AI
[2018-09-16 16:12] LABS: ADD UMIC YES; UR ASCORBIC ACID NEGATIVE (NEGATIVE); UR BACTERIA FEW /HPF (NONE SEEN); UR BILIRUBIN (Dip) NEGATIVE (NEGATIVE); UR BLOOD (Dip) 1+ mg/dL (NEGATIVE); UR BUDDING YEAST FEW /HPF (NONE SEEN); UR CLARITY CLOUDY (CLEAR); UR COLOR YELLOW (YELLOW); UR GLUCOSE (Dip) NEGATIVE (NEGATIVE); UR KETONES (Dip) NEGATIVE (NEGATIVE); UR LEUKOCYTE ESTERASE (Dip) 2+ Leu/ul (NEGATIVE); UR NITRITE (Dip) NEGATIVE (NEGATIVE); UR RBC 14 /HPF (0-5); UR TOTAL PROTEIN (Dip) 1+ mg/dl (NEGATIVE); UR UROBILINOGEN (Dip) NEGATIVE (NEGATIVE); UR WBC 102 /HPF (0-5)
[2018-09-16] MEDS: ZOLPIDEM 5 MG TAB PO (21:50)
[2018-09-17] MEDS: ACCUCHECK AT 2AM (Patients on SS coverage) XX (02:00)
[2018-09-17 05:12] LABS: ADD MAN DIFF? NO
[2018-09-17 05:21] LABS: WHITE BLOOD COUNT 6.8 10^3/ul (4.8-10.8)
[2018-09-17 05:21] LABS: BASOPHILS % 0.4 % (0.0-2.0); EOSINOPHILS # 0.2 10^3/ul (0.0-0.5); EOSINOPHILS % 2.6 % (0.0-7.0); HEMATOCRIT 24.6 % (37.0-47.0); HEMOGLOBIN 7.9 g/dl (12.0-16.0); LYMPHOCYTES # 1.2 10^3/ul (0.8-2.9); LYMPHOCYTES % 17.3 % (15.0-51.0); MEAN CORPUSCULAR HEMOGLOBIN 27.5 pg (29.0-33.0); MEAN CORPUSCULAR HGB CONC 32.1 g/dl (32.0-37.0); MEAN CORPUSCULAR VOLUME 85.7 fl (82.0-101.0); MEAN PLATELET VOLUME 11.1 fl (7.4-10.4); MONOCYTE # 0.6 10^3/ul (0.3-0.9); MONOCYTES % 8.8 % (0.0-11.0); NEUTROPHIL # 4.8 10^3/ul (1.6-7.5); NEUTROPHILS % 70.3 % (39.0-77.0); PLATELET COUNT 358 10^3/UL (140-415); RED BLOOD COUNT 2.87 10^6/ul (4.20-5.40); RED CELL DISTRIBUTION WIDTH 13.6 % (11.5-14.5)
[2018-09-17 05:33] LABS: ALANINE AMINOTRANSFERASE 78 IU/L (13-69); ALKALINE PHOSPHATASE 106 IU/L (42-121); ANION GAP 8 (5-13); ASPARTATE AMINO TRANSFERASE 32 IU/L (15-46); BILIRUBIN,INDIRECT 0.4 mg/dl (0-1.1); BILIRUBIN,TOTAL 0.4 mg/dl (0.2-1.3); BLOOD UREA NITROGEN 27 mg/dl (7-20); CALCIUM 9.4 mg/dl (8.4-10.2); CARBON DIOXIDE 30 mmol/L (21-31); CHLORIDE 99 mmol/L (97-110); CREATININE 0.83 mg/dl (0.44-1.00); GLUCOSE 137 mg/dl (70-220); MAGNESIUM 2.2 mg/dl (1.7-2.5); PHOSPHORUS 3.8 mg/dl (2.5-4.9); POTASSIUM 4.5 mmol/L (3.5-5.1); SODIUM 137 mmol/L (135-144); TOTAL PROTEIN 6.3 g/dl (6.1-8.1)
[2018-09-17] MEDS: INSULIN GLARGINE [LANTus] (100 UNITS/ML) SYG SC (07:39)
[2018-09-17] MEDS: INSULIN ASPART [NOVOLOG] 3 ML PEN SC (07:40)
[2018-09-17] MEDS: FAMOTIDINE 20 MG TAB PO (08:30)
[2018-09-17] MEDS: CLOPIDOGREL 75 MG TAB PO (08:30)
[2018-09-17] MEDS: DOCUSATE SODIUM 100 MG CAP PO (08:30)
[2018-09-17] MEDS: METOPROLOL 50 MG TAB PO (08:30)
[2018-09-17] MEDS: FELODIPINE (ER) 2.5 MG TAB PO (08:30)
[2018-09-17] MEDS: MAGNESIUM OXIDE 400 MG TAB PO (08:31)
[2018-09-17] MEDS: ASPIRIN (EC) 81 MG TAB PO (08:31)
[2018-09-17] MEDS: LIDOCAINE 5% PATCH TD (08:31)
[2018-09-17] MEDS: BUMETANIDE 1 MG TAB PO (08:31)
[2018-09-17] MEDS: ARTIFICIAL TEARS 15 ML OPH BOTH EYES (08:32)
[2018-09-17 09:11] LABS: IRON 26 ug/dl (35-150)
[2018-09-17 09:20] LABS: % IRON SATURATION 12 % SAT (22-52); TOTAL IRON BINDING CAPACITY 220 ug/dl (241-421)
== END 2018-09-17 11:27 | DRG 246 ==
LOC: 6WM 09-07 12:16 → E/R 05:22 → ICU 07:08
PROVIDERS: Internal Medicine
PROC: 027135Z Dilation of Coronary Artery, Two Arteries with Two Drug-eluting Intraluminal Devices, Percutaneous Approach (ICD-10-PCS; principal; 2018-09-15 07:29)
PROC: 4A023N7 Measurement of Cardiac Sampling and Pressure, Left Heart, Percutaneous Approach (ICD-10-PCS; 2018-09-15 07:29)
DX: I21.A1 Myocardial infarction type 2 (principal); I50.31 Acute diastolic (congestive) heart failure; J18.9 Pneumonia, unspecified organism; J96.01 Acute respiratory failure with hypoxia; I13.0 Hypertensive heart and chronic kidney disease with heart failure and stage 1 through stage 4 chronic kidney disease, or unspecified chronic kidney disease; N17.9 Acute kidney failure, unspecified; J81.1 Chronic pulmonary edema; I21.4 Non-ST elevation (NSTEMI) myocardial infarction; D64.9 Anemia, unspecified; F41.9 Anxiety disorder, unspecified; E78.5 Hyperlipidemia, unspecified; K21.9 Gastro-esophageal reflux disease without esophagitis; D50.9 Iron deficiency anemia, unspecified; M10.9 Gout, unspecified; N18.9 Chronic kidney disease, unspecified; E11.65 Type 2 diabetes mellitus with hyperglycemia; I35.0 Nonrheumatic aortic (valve) stenosis; I48.0 Paroxysmal atrial fibrillation; Y95 Nosocomial condition; N32.89 Other specified disorders of bladder; I25.10 Atherosclerotic heart disease of native coronary artery without angina pectoris; Z79.4 Long term (current) use of insulin; Z85.3 Personal history of malignant neoplasm of breast
CPT/HCPCS: 36415; 36600; 71045; 71275; 76604; 76700; 76705; 80048; 80053; 80076; 80202; 81001; 82550; 82553; 82607; 82728; 82803; 82962; 83036; 83540; 83605; 83615; 83690; 83735; 83880; 84100; 84132; 84145; 84443; 84484; 85025; 85049; 85610; 85651; 85670; 85730; 86021; 86038; 86704; 86709; 86803; 87070; 87081; 87086; 87275; 87276; 87279; 87280; 87340; 92526; 92610; 93005; 93306; 93308; 93458; 93880; 93970; 94660; 96374; 97116; 97162; 97530; 99285-25

== ENCOUNTER 2018-09-17 11:22 | Inpatient (IN) | payer MEDICARE, OTHER ==
[2018-09-17] MEDS ORDERED: LACTULOSE 30ML CUP PO (12:00)
[2018-09-17] MEDS ORDERED: PENDING SANTYL ORDER FOR WOUND CARE XX (12:00)
[2018-09-17] MEDS ORDERED: BISACODYL 10 MG SUPP PR (12:00)
[2018-09-17] MEDS ORDERED: ALUMINUM HYDROXIDE 30 ML CUP PO (12:30)
[2018-09-17] MEDS ORDERED: GUAIFENESIN/CODEINE 5ML CUP PO (12:30)
[2018-09-17] MEDS ORDERED: GLUCOSE GEL 15 GRAM TUBE BUCCAL (12:30)
[2018-09-17] MEDS ORDERED: DEXTROSE 50% 50 ML SYRINGE IV ×2 (12:30)
[2018-09-17] MEDS ORDERED: OXYCODONE/ACETAMINOPHEN (5/325) TAB PO (12:30)
[2018-09-17] MEDS ORDERED: GLUCAGON 1 MG INJ IM (12:30)
[2018-09-17] MEDS ORDERED: GLUCOSE GEL 15 GRAM TUBE PO ×2 (12:30)
[2018-09-17 13:46] LABS: ADD UMIC NO; UR ASCORBIC ACID NEGATIVE (NEGATIVE); UR BILIRUBIN (Dip) NEGATIVE (NEGATIVE); UR BLOOD (Dip) NEGATIVE (NEGATIVE); UR CLARITY CLEAR (CLEAR); UR COLOR COLORLESS (YELLOW); UR GLUCOSE (Dip) NEGATIVE (NEGATIVE); UR KETONES (Dip) NEGATIVE (NEGATIVE); UR LEUKOCYTE ESTERASE (Dip) NEGATIVE Leu/ul (NEGATIVE); UR NITRITE (Dip) NEGATIVE (NEGATIVE); UR SPECIFIC GRAVITY (Dip) 1.005 (1.003-1.030); UR TOTAL PROTEIN (Dip) NEGATIVE (NEGATIVE); UR UROBILINOGEN (Dip) NEGATIVE (NEGATIVE)
[2018-09-17] MEDS: INSULIN ASPART [NOVOLOG] 3 ML PEN SC ×2 (17:27→21:00)
[2018-09-17] MEDS: METOPROLOL 25 MG TAB PO (21:14)
[2018-09-17] MEDS: ACETAMINOPHEN 325 MG TAB PO (23:44)
[2018-09-18] MEDS: BUMETANIDE 1 MG TAB PO (06:07)
[2018-09-18 07:14] LABS: ADD MAN DIFF? NO
[2018-09-18 07:21] LABS: BASOPHILS % 0.8 % (0.0-2.0); EOSINOPHILS # 0.2 10^3/ul (0.0-0.5); EOSINOPHILS % 5.8 % (0.0-7.0); HEMATOCRIT 28.2 % (37.0-47.0); HEMOGLOBIN 8.7 g/dl (12.0-16.0); LYMPHOCYTES # 1.2 10^3/ul (0.8-2.9); LYMPHOCYTES % 30.6 % (15.0-51.0); MEAN CORPUSCULAR HEMOGLOBIN 26.5 pg (29.0-33.0); MEAN CORPUSCULAR HGB CONC 30.9 g/dl (32.0-37.0); MEAN PLATELET VOLUME 11.4 fl (7.4-10.4); MONOCYTE # 0.5 10^3/ul (0.3-0.9); MONOCYTES % 11.8 % (0.0-11.0); NEUTROPHILS % 50.5 % (39.0-77.0); PLATELET COUNT 390 10^3/UL (140-415); RED BLOOD COUNT 3.28 10^6/ul (4.20-5.40); RED CELL DISTRIBUTION WIDTH 13.6 % (11.5-14.5)
[2018-09-18 07:41] LABS: ALANINE AMINOTRANSFERASE 68 IU/L (13-69); ALBUMIN 3.2 g/dl (3.3-4.9); ALBUMIN/GLOBULIN RATIO 0.91; ALKALINE PHOSPHATASE 125 IU/L (42-121); ANION GAP 8 (5-13); ASPARTATE AMINO TRANSFERASE 32 IU/L (15-46); BILIRUBIN,INDIRECT 0.3 mg/dl (0-1.1); BILIRUBIN,TOTAL 0.3 mg/dl (0.2-1.3); BLOOD UREA NITROGEN 29 mg/dl (7-20); CALCIUM 9.4 mg/dl (8.4-10.2); CARBON DIOXIDE 32 mmol/L (21-31); CHLORIDE 99 mmol/L (97-110); CREATININE 0.91 mg/dl (0.44-1.00); GLUCOSE 144 mg/dl (70-220); POTASSIUM 4.2 mmol/L (3.5-5.1); SODIUM 139 mmol/L (135-144); TOTAL PROTEIN 6.7 g/dl (6.1-8.1)
[2018-09-18] MEDS: LIDOCAINE 5% PATCH TD (08:11)
[2018-09-18] MEDS: INSULIN ASPART [NOVOLOG] 3 ML PEN SC ×4 (08:14→20:24)
[2018-09-18] MEDS: ENOXAPARIN 40 MG/0.4 ML SYG SC (08:15)
[2018-09-18] MEDS: CLOPIDOGREL 75 MG TAB PO (08:16)
[2018-09-18] MEDS: INSULIN GLARGINE [LANTus] (100 UNITS/ML) SYG SC (08:16)
[2018-09-18] MEDS: ASPIRIN (EC) 81 MG TAB PO (08:16)
[2018-09-18] MEDS: FAMOTIDINE 20 MG TAB PO (08:16)
[2018-09-18] MEDS: MAGNESIUM OXIDE 400 MG TAB PO (08:16)
[2018-09-18] MEDS: FELODIPINE (ER) 2.5 MG TAB PO (08:16)
[2018-09-18] MEDS: METOPROLOL 25 MG TAB PO ×2 (08:17→20:22)
[2018-09-18] MEDS: ARTIFICIAL TEARS 15 ML OPH BOTH EYES (08:29)
[2018-09-18 20:02] LABS: OCCULT BLOOD STOOL NEGATIVE (NEGATIVE)
[2018-09-19] MEDS: LORAZEPAM 0.5 MG TAB PO (00:21)
[2018-09-19] MEDS: BUMETANIDE 1 MG TAB PO (06:17)
[2018-09-19] MEDS: INSULIN ASPART [NOVOLOG] 3 ML PEN SC ×4 (07:35→21:00)
[2018-09-19] MEDS: FAMOTIDINE 20 MG TAB PO (07:55)
[2018-09-19] MEDS: FELODIPINE (ER) 2.5 MG TAB PO ×2 (09:00→14:21)
[2018-09-19] MEDS: INSULIN GLARGINE [LANTus] (100 UNITS/ML) SYG SC (10:15)
[2018-09-19] MEDS: MAGNESIUM OXIDE 400 MG TAB PO (10:23)
[2018-09-19] MEDS: ASPIRIN (EC) 81 MG TAB PO (10:23)
[2018-09-19] MEDS: CLOPIDOGREL 75 MG TAB PO (10:23)
[2018-09-19] MEDS: LIDOCAINE 5% PATCH TD (10:25)
[2018-09-19] MEDS: METOPROLOL 25 MG TAB PO ×2 (10:37→21:29)
[2018-09-19] MEDS: ENOXAPARIN 40 MG/0.4 ML SYG SC (10:39)
[2018-09-19] MEDS: SOD FERRIC GLUC COMPLX 125 MG in SOD CHLORIDE 0.9% 100 ML IVPB (13:34)
[2018-09-19] MEDS: ARTIFICIAL TEARS 15 ML OPH BOTH EYES (14:21)
[2018-09-20] MEDS: ACETAMINOPHEN 325 MG TAB PO (00:09)
[2018-09-20] MEDS: ARTIFICIAL TEARS 15 ML OPH BOTH EYES ×2 (00:12→20:11)
[2018-09-20] MEDS: BUMETANIDE 1 MG TAB PO (05:46)
[2018-09-20 07:18] LABS: ADD MAN DIFF? NO
[2018-09-20 07:23] LABS: BASOPHILS % 0.9 % (0.0-2.0); EOSINOPHILS # 0.3 10^3/ul (0.0-0.5); EOSINOPHILS % 7.8 % (0.0-7.0); HEMATOCRIT 27.9 % (37.0-47.0); HEMOGLOBIN 8.8 g/dl (12.0-16.0); LYMPHOCYTES # 1.2 10^3/ul (0.8-2.9); LYMPHOCYTES % 35.2 % (15.0-51.0); MEAN CORPUSCULAR HEMOGLOBIN 27.2 pg (29.0-33.0); MEAN CORPUSCULAR HGB CONC 31.5 g/dl (32.0-37.0); MEAN CORPUSCULAR VOLUME 86.1 fl (82.0-101.0); MEAN PLATELET VOLUME 10.9 fl (7.4-10.4); MONOCYTE # 0.4 10^3/ul (0.3-0.9); MONOCYTES % 12.7 % (0.0-11.0); NEUTROPHIL # 1.5 10^3/ul (1.6-7.5); NEUTROPHILS % 43.1 % (39.0-77.0); PLATELET COUNT 357 10^3/UL (140-415); RED BLOOD COUNT 3.24 10^6/ul (4.20-5.40); RED CELL DISTRIBUTION WIDTH 13.7 % (11.5-14.5)
[2018-09-20 07:23] LABS: WHITE BLOOD COUNT 3.5 10^3/ul (4.8-10.8)
[2018-09-20] MEDS: INSULIN ASPART [NOVOLOG] 3 ML PEN SC ×4 (07:35→20:14)
[2018-09-20 08:06] LABS: ALANINE AMINOTRANSFERASE 61 IU/L (13-69); ALBUMIN 3.2 g/dl (3.3-4.9); ALBUMIN/GLOBULIN RATIO 1.03; ALKALINE PHOSPHATASE 109 IU/L (42-121); ANION GAP 6 (5-13); ASPARTATE AMINO TRANSFERASE 31 IU/L (15-46); BILIRUBIN,INDIRECT 0.3 mg/dl (0-1.1); BILIRUBIN,TOTAL 0.3 mg/dl (0.2-1.3); BLOOD UREA NITROGEN 22 mg/dl (7-20); CALCIUM 9.7 mg/dl (8.4-10.2); CARBON DIOXIDE 32 mmol/L (21-31); CHLORIDE 103 mmol/L (97-110); CREATININE 0.78 mg/dl (0.44-1.00); GLUCOSE 103 mg/dl (70-220); MAGNESIUM 2.2 mg/dl (1.7-2.5); PHOSPHORUS 4.4 mg/dl (2.5-4.9); POTASSIUM 4.9 mmol/L (3.5-5.1); SODIUM 141 mmol/L (135-144); TOTAL PROTEIN 6.3 g/dl (6.1-8.1)
[2018-09-20] MEDS: INSULIN GLARGINE [LANTus] (100 UNITS/ML) SYG SC (08:36)
[2018-09-20] MEDS: FAMOTIDINE 20 MG TAB PO (08:37)
[2018-09-20] MEDS: ASPIRIN (EC) 81 MG TAB PO (10:12)
[2018-09-20] MEDS: FELODIPINE (ER) 2.5 MG TAB PO (10:12)
[2018-09-20] MEDS: LORAZEPAM 0.5 MG TAB PO (10:12)
[2018-09-20] MEDS: CLOPIDOGREL 75 MG TAB PO (10:13)
[2018-09-20] MEDS: MAGNESIUM OXIDE 400 MG TAB PO (10:13)
[2018-09-20] MEDS: METOPROLOL 25 MG TAB PO ×2 (10:14→20:11)
[2018-09-20] MEDS: DOCUSATE SODIUM 100 MG CAP PO (10:14)
[2018-09-20] MEDS: LIDOCAINE 5% PATCH TD (10:16)
[2018-09-20] MEDS: ENOXAPARIN 40 MG/0.4 ML SYG SC (10:18)
[2018-09-20] MEDS: SOD FERRIC GLUC COMPLX 125 MG in SOD CHLORIDE 0.9% 100 ML IVPB (13:54)
[2018-09-20] MEDS: ATORVASTATIN 20 MG TAB PO (20:11)
[2018-09-21] MEDS: ACETAMINOPHEN 325 MG TAB PO (00:41)
[2018-09-21] MEDS: BUMETANIDE 1 MG TAB PO (06:15)
[2018-09-21] MEDS: FAMOTIDINE 20 MG TAB PO (06:25)
[2018-09-21] MEDS: MAGNESIUM HYDROXIDE 30ML CUP PO (06:25)
[2018-09-21] MEDS: INSULIN ASPART [NOVOLOG] 3 ML PEN SC ×4 (07:35→21:02)
[2018-09-21] MEDS: INSULIN GLARGINE [LANTus] (100 UNITS/ML) SYG SC (08:28)
[2018-09-21] MEDS: LIDOCAINE 5% PATCH TD (10:10)
[2018-09-21] MEDS: MAGNESIUM OXIDE 400 MG TAB PO (10:10)
[2018-09-21] MEDS: ASPIRIN (EC) 81 MG TAB PO (10:11)
[2018-09-21] MEDS: METOPROLOL 25 MG TAB PO ×2 (10:11→21:01)
[2018-09-21] MEDS: ENOXAPARIN 40 MG/0.4 ML SYG SC (10:17)
[2018-09-21] MEDS: ARTIFICIAL TEARS 15 ML OPH BOTH EYES ×2 (10:22→21:17)
[2018-09-21] MEDS: LORAZEPAM 0.5 MG TAB PO (11:00)
[2018-09-21] MEDS: CLOPIDOGREL 75 MG TAB PO (11:01)
[2018-09-21] MEDS: FELODIPINE (ER) 2.5 MG TAB PO (11:01)
[2018-09-21] MEDS: SOD FERRIC GLUC COMPLX 125 MG in SOD CHLORIDE 0.9% 100 ML IVPB (13:51)
[2018-09-21] MEDS: ATORVASTATIN 20 MG TAB PO (21:00)
[2018-09-21] MEDS: DOCUSATE SODIUM 100 MG CAP PO (21:17)
[2018-09-21] MEDS: ZOLPIDEM 5 MG TAB PO (22:58)
[2018-09-22] MEDS ORDERED: DOCUSATE SODIUM 100 MG CAP PO
[2018-09-22] MEDS: FAMOTIDINE 20 MG TAB PO (06:49)
[2018-09-22] MEDS: BUMETANIDE 1 MG TAB PO (06:50)
[2018-09-22] MEDS: INSULIN ASPART [NOVOLOG] 3 ML PEN SC ×4 (07:35→21:00)
[2018-09-22] MEDS: INSULIN GLARGINE [LANTus] (100 UNITS/ML) SYG SC (08:12)
[2018-09-22] MEDS: LIDOCAINE 5% PATCH TD (09:32)
[2018-09-22] MEDS: ASPIRIN (EC) 81 MG TAB PO (09:32)
[2018-09-22] MEDS: CLOPIDOGREL 75 MG TAB PO (09:32)
[2018-09-22] MEDS: MAGNESIUM OXIDE 400 MG TAB PO (09:33)
[2018-09-22] MEDS: FELODIPINE (ER) 2.5 MG TAB PO (09:33)
[2018-09-22] MEDS: METOPROLOL 25 MG TAB PO ×2 (09:33→21:19)
[2018-09-22] MEDS: ENOXAPARIN 40 MG/0.4 ML SYG SC (09:35)
[2018-09-22] MEDS: DOCUSATE SODIUM 100 MG CAP PO ×2 (09:37→21:17)
[2018-09-22] MEDS: LACTULOSE 30ML CUP PO (09:37)
[2018-09-22] MEDS: SOD FERRIC GLUC COMPLX 125 MG in SOD CHLORIDE 0.9% 100 ML IVPB (12:40)
[2018-09-22] MEDS: ARTIFICIAL TEARS 15 ML OPH BOTH EYES (21:18)
[2018-09-22] MEDS: ATORVASTATIN 20 MG TAB PO (21:18)
[2018-09-23] MEDS: BUMETANIDE 1 MG TAB PO (06:25)
[2018-09-23] MEDS: FAMOTIDINE 20 MG TAB PO (06:25)
[2018-09-23 06:34] LABS: ADD MAN DIFF? NO
[2018-09-23 06:37] LABS: WHITE BLOOD COUNT 4.2 10^3/ul (4.8-10.8)
[2018-09-23 06:37] LABS: BASOPHILS % 0.5 % (0.0-2.0); EOSINOPHILS # 0.2 10^3/ul (0.0-0.5); EOSINOPHILS % 5.7 % (0.0-7.0); HEMATOCRIT 29.3 % (37.0-47.0); HEMOGLOBIN 9.5 g/dl (12.0-16.0); LYMPHOCYTES # 1.6 10^3/ul (0.8-2.9); LYMPHOCYTES % 36.6 % (15.0-51.0); MEAN CORPUSCULAR HEMOGLOBIN 27.9 pg (29.0-33.0); MEAN CORPUSCULAR HGB CONC 32.4 g/dl (32.0-37.0); MEAN CORPUSCULAR VOLUME 86.2 fl (82.0-101.0); MEAN PLATELET VOLUME 10.7 fl (7.4-10.4); MONOCYTE # 0.5 10^3/ul (0.3-0.9); MONOCYTES % 11.6 % (0.0-11.0); NEUTROPHIL # 1.9 10^3/ul (1.6-7.5); NEUTROPHILS % 44.9 % (39.0-77.0); PLATELET COUNT 316 10^3/UL (140-415); RED CELL DISTRIBUTION WIDTH 14.3 % (11.5-14.5)
[2018-09-23 06:55] LABS: ALANINE AMINOTRANSFERASE 40 IU/L (13-69); ALBUMIN 3.6 g/dl (3.3-4.9); ALBUMIN/GLOBULIN RATIO 1.09; ALKALINE PHOSPHATASE 112 IU/L (42-121); ANION GAP 8 (5-13); ASPARTATE AMINO TRANSFERASE 27 IU/L (15-46); BILIRUBIN,INDIRECT 0.4 mg/dl (0-1.1); BILIRUBIN,TOTAL 0.4 mg/dl (0.2-1.3); BLOOD UREA NITROGEN 24 mg/dl (7-20); CALCIUM 9.9 mg/dl (8.4-10.2); CARBON DIOXIDE 31 mmol/L (21-31); CHLORIDE 102 mmol/L (97-110); CREATININE 0.92 mg/dl (0.44-1.00); GLUCOSE 122 mg/dl (70-220); MAGNESIUM 2.1 mg/dl (1.7-2.5); PHOSPHORUS 4.1 mg/dl (2.5-4.9); POTASSIUM 4.2 mmol/L (3.5-5.1); SODIUM 141 mmol/L (135-144); TOTAL PROTEIN 6.9 g/dl (6.1-8.1)
[2018-09-23] MEDS: INSULIN ASPART [NOVOLOG] 3 ML PEN SC ×4 (07:35→20:55)
[2018-09-23] MEDS: INSULIN GLARGINE [LANTus] (100 UNITS/ML) SYG SC (08:00)
[2018-09-23] MEDS: METOPROLOL 25 MG TAB PO ×2 (08:36→20:47)
[2018-09-23] MEDS: LACTULOSE 30ML CUP PO (08:36)
[2018-09-23] MEDS: DOCUSATE SODIUM 100 MG CAP PO ×2 (08:36→20:43)
[2018-09-23] MEDS: MAGNESIUM OXIDE 400 MG TAB PO (08:36)
[2018-09-23] MEDS: ASPIRIN (EC) 81 MG TAB PO (08:37)
[2018-09-23] MEDS: FELODIPINE (ER) 2.5 MG TAB PO (08:37)
[2018-09-23] MEDS: metFORMIN (XR) 500 MG TAB PO ×2 (08:37→17:13)
[2018-09-23] MEDS: CLOPIDOGREL 75 MG TAB PO (08:37)
[2018-09-23] MEDS: LIDOCAINE 5% PATCH TD (08:39)
[2018-09-23] MEDS: ENOXAPARIN 40 MG/0.4 ML SYG SC (08:44)
[2018-09-23] MEDS: SOD FERRIC GLUC COMPLX 125 MG in SOD CHLORIDE 0.9% 100 ML IVPB (12:30)
[2018-09-23] MEDS: ARTIFICIAL TEARS 15 ML OPH BOTH EYES ×2 (17:14→20:43)
[2018-09-23] MEDS ORDERED: LACTULOSE 30ML CUP PO (19:00)
[2018-09-23] MEDS: ATORVASTATIN 20 MG TAB PO (20:43)
[2018-09-23] MEDS: ZOLPIDEM 5 MG TAB PO (23:12)
[2018-09-24] MEDS: BUMETANIDE 1 MG TAB PO (06:19)
[2018-09-24] MEDS: FAMOTIDINE 20 MG TAB PO (06:19)
[2018-09-24] MEDS: INSULIN ASPART [NOVOLOG] 3 ML PEN SC ×4 (07:35→21:00)
[2018-09-24] MEDS: metFORMIN (XR) 500 MG TAB PO ×2 (07:40→17:26)
[2018-09-24] MEDS: CLOPIDOGREL 75 MG TAB PO (08:45)
[2018-09-24] MEDS: MAGNESIUM OXIDE 400 MG TAB PO (08:45)
[2018-09-24] MEDS: FELODIPINE (ER) 2.5 MG TAB PO (08:45)
[2018-09-24] MEDS: DOCUSATE SODIUM 100 MG CAP PO ×2 (08:45→21:02)
[2018-09-24] MEDS: METOPROLOL 25 MG TAB PO ×2 (08:45→21:00)
[2018-09-24] MEDS: LIDOCAINE 5% PATCH TD (08:46)
[2018-09-24] MEDS: ARTIFICIAL TEARS 15 ML OPH BOTH EYES (08:46)
[2018-09-24] MEDS: ASPIRIN (EC) 81 MG TAB PO (08:46)
[2018-09-24] MEDS: ENOXAPARIN 40 MG/0.4 ML SYG SC (08:49)
[2018-09-24] MEDS: ATORVASTATIN 20 MG TAB PO (21:02)
[2018-09-24] MEDS: ZOLPIDEM 5 MG TAB PO (23:40)
[2018-09-25] MEDS: BUMETANIDE 1 MG TAB PO (06:38)
[2018-09-25] MEDS: FAMOTIDINE 20 MG TAB PO (06:38)
[2018-09-25] MEDS: METOPROLOL 25 MG TAB PO ×2 (06:45→20:22)
[2018-09-25] MEDS: FELODIPINE (ER) 2.5 MG TAB PO (07:25)
[2018-09-25] MEDS: metFORMIN (XR) 500 MG TAB PO ×2 (07:29→17:32)
[2018-09-25] MEDS: INSULIN ASPART [NOVOLOG] 3 ML PEN SC ×4 (07:35→21:46)
[2018-09-25] MEDS: ARTIFICIAL TEARS 15 ML OPH BOTH EYES ×2 (09:50→21:37)
[2018-09-25] MEDS: LIDOCAINE 5% PATCH TD (09:58)
[2018-09-25] MEDS: LORAZEPAM 0.5 MG TAB PO (09:58)
[2018-09-25] MEDS: CLOPIDOGREL 75 MG TAB PO (09:58)
[2018-09-25] MEDS: ASPIRIN (EC) 81 MG TAB PO (09:58)
[2018-09-25] MEDS: DOCUSATE SODIUM 100 MG CAP PO ×2 (09:58→20:21)
[2018-09-25] MEDS: ENOXAPARIN 40 MG/0.4 ML SYG SC (09:59)
[2018-09-25] MEDS: MAGNESIUM OXIDE 400 MG TAB PO (10:01)
[2018-09-25] MEDS: ATORVASTATIN 20 MG TAB PO (20:21)
[2018-09-26] MEDS: FAMOTIDINE 20 MG TAB PO ×2 (06:10→09:16)
[2018-09-26] MEDS: BUMETANIDE 1 MG TAB PO (06:10)
[2018-09-26] MEDS: INSULIN ASPART [NOVOLOG] 3 ML PEN SC ×4 (08:03→20:16)
[2018-09-26] MEDS: metFORMIN (XR) 500 MG TAB PO ×2 (08:04→18:30)
[2018-09-26] MEDS: ASPIRIN (EC) 81 MG TAB PO (09:15)
[2018-09-26] MEDS: MAGNESIUM OXIDE 400 MG TAB PO (09:15)
[2018-09-26] MEDS: DOCUSATE SODIUM 100 MG CAP PO ×2 (09:16→20:15)
[2018-09-26] MEDS: CLOPIDOGREL 75 MG TAB PO (09:16)
[2018-09-26] MEDS: METOPROLOL 25 MG TAB PO ×2 (09:16→20:16)
[2018-09-26] MEDS: LORAZEPAM 0.5 MG TAB PO (09:19)
[2018-09-26] MEDS: FELODIPINE (ER) 2.5 MG TAB PO (09:19)
[2018-09-26] MEDS: LIDOCAINE 5% PATCH TD (13:50)
[2018-09-26] MEDS: ATORVASTATIN 20 MG TAB PO (20:15)
[2018-09-27] MEDS: BUMETANIDE 1 MG TAB PO (06:38)
[2018-09-27] MEDS: INSULIN ASPART [NOVOLOG] 3 ML PEN SC ×2 (07:35→11:48)
[2018-09-27] MEDS: metFORMIN (XR) 500 MG TAB PO (07:55)
[2018-09-27] MEDS: DOCUSATE SODIUM 100 MG CAP PO ×2 (09:00→10:59)
[2018-09-27] MEDS: ASPIRIN (EC) 81 MG TAB PO (10:48)
[2018-09-27] MEDS: CLOPIDOGREL 75 MG TAB PO (10:50)
[2018-09-27] MEDS: MAGNESIUM OXIDE 400 MG TAB PO (10:50)
[2018-09-27] MEDS: LIDOCAINE 5% PATCH TD (10:51)
[2018-09-27] MEDS: FELODIPINE (ER) 2.5 MG TAB PO (10:51)
[2018-09-27] MEDS: METOPROLOL 25 MG TAB PO (10:52)
== END 2018-09-27 12:30 | disposition home health service (06) | DRG 91 ==
LOC: VRC 11:22
PROVIDERS: Physical Medicine & Rehabilitation
DX: G72.81 Critical illness myopathy (principal); J18.9 Pneumonia, unspecified organism; I50.30 Unspecified diastolic (congestive) heart failure; I25.10 Atherosclerotic heart disease of native coronary artery without angina pectoris; I11.0 Hypertensive heart disease with heart failure; D63.8 Anemia in other chronic diseases classified elsewhere; E11.9 Type 2 diabetes mellitus without complications; R21 Rash and other nonspecific skin eruption; Z95.5 Presence of coronary angioplasty implant and graft; Z87.01 Personal history of pneumonia (recurrent)
CPT/HCPCS: 71046; 80053; 81003; 82270; 82962; 83735; 84100; 85025; 87081; 87086; 97110; 97112; 97116; 97163; 97167; 97530; 97535; 97542

== ENCOUNTER → 2018-10-09 | Outpatient (CLI) | payer MEDICARE, OTHER | END | disposition home or self-care (01) | LOC: C/S 09:29 | DX: R94.39 Abnormal result of other cardiovascular function study (principal); R07.9 Chest pain, unspecified | CPT/HCPCS: 74176 ==